=== PATIENT | female | born 1960 | race Caucasian/White ===

== ENCOUNTER 2023-04-30 07:35 | Outpatient (CLI) | payer BC, SELFPAY | END 2023-04-30 07:36 | disposition home or self-care (01) | LOC: NFLDREF 11:45 | PROVIDERS: PCP Nurse Practitioner Family; Referring Provider Nurse Practitioner Family; Visit Provider Nurse Practitioner Family | DX: R53.83 Other fatigue (principal); R20.2 Paresthesia of skin; I10 Essential (primary) hypertension; Z51.81 Encounter for therapeutic drug level monitoring; Z13.6 Encounter for screening for cardiovascular disorders | CPT/HCPCS: 80053; 80061; 82607 ==

== ENCOUNTER 2023-12-26 09:30 | Outpatient (RCR) | payer OTHER, SELFPAY | END 2024-03-11 10:25 | disposition home or self-care (01) | PROVIDERS: PCP Physician Assistant; Visit Provider Nurse Practitioner Family | DX: M70.71 Other bursitis of hip, right hip (principal); M70.72 Other bursitis of hip, left hip; S76.312A Strain of muscle, fascia and tendon of the posterior muscle group at thigh level, left thigh, initial encounter; S76.311A Strain of muscle, fascia and tendon of the posterior muscle group at thigh level, right thigh, initial encounter; M62.81 Muscle weakness (generalized); Z51.89 Encounter for other specified aftercare | CPT/HCPCS: 97110; 97161 ==

== ENCOUNTER 2024-04-25 08:25 | Outpatient (CLI) | payer OTHER, SELFPAY | END 2024-04-25 08:26 | disposition home or self-care (01) | PROVIDERS: PCP Nurse Practitioner Family; Visit Provider Nurse Practitioner Family | DX: Z00.00 Encounter for general adult medical examination without abnormal findings (principal); R73.09 Other abnormal glucose; I10 Essential (primary) hypertension; Z13.0 Encounter for screening for diseases of the blood and blood-forming organs and certain disorders involving the immune mechanism; Z13.6 Encounter for screening for cardiovascular disorders | CPT/HCPCS: 80053; 80061; 83036; 85025 ==

== ENCOUNTER 2024-07-14 09:50 | Outpatient (CLI) | payer MEDICARE, SELFPAY ==
--- NOTE | 2024-07-14 10:05 | CRLHL7_ITS ---
For Patients: As a result of the Cures Act, medical imaging exams and procedure reports are released immediately into your electronic medical record. You may view this report before your referring provider. If you have questions, please contact your health care provider. BILATERAL SCREENING MAMMOGRAM WITH COMPUTER-AIDED DETECTION AND TOMOSYNTHESIS TECHNIQUE: CC and MLO views were obtained. These mammographic images have been obtained using full-field digital technique. These mammographic images were interpreted with the benefit of computer-aided detection. Breast Tomosynthesis was used in this interpretation. COMPARISON FILM: 04/09/23, 01/24/22, 01/14/21. FINDINGS: There are scattered areas of fibroglandular density. IMPRESSION: There is no radiographic evidence for malignancy. ASSESSMENT: BI-RADS Category 2: Benign RECOMMENDATION: Routine screening mammogram in 1 year. A lay language report of this examination will be provided to the patient. Sae Ruff M.D. Diagnostic Radiologist [email or web address] SP/Dictated by: Sae Ruff MD @ 07/17/2024 9:58:00 AM SP/Dictated by: Sae Ruff MD @ 07/17/2024 9:58:00 AM (Electronically Signed)
== END 2024-07-14 09:51 | disposition home or self-care (01) ==
LOC: MAMMO 09:53
PROVIDERS: PCP Nurse Practitioner Family; Visit Provider Nurse Practitioner Family
DX: Z12.31 Encounter for screening mammogram for malignant neoplasm of breast (principal)
CPT/HCPCS: 77063; 77067

== ENCOUNTER 2024-12-29 06:25 | Outpatient (CLI) | payer MEDICARE, SELFPAY ==
--- NOTE | 2024-12-29 07:53 | P.ANES_ITS ---
Anesthesia Charges Start Date/Time Anesthesia Start Date: 12/29/24 Anesthesia Start Time: 07:20 Stop Date/Time Anesthesia Stop Date: 12/29/24 Anesthesia Stop Time: 07:50 Coding CPT Codes CPT Codes: CHRISTOPHER LWLuis INTST NDSC NOS - 02537 ([id number]) P2 - PATIENT W/MILD SYST DISEASE, QX - SPINDLE SANDER SVC W/ MD MED DIRECTION, QK - PIN INSERTER 2-4 CNCRNT ANEIsabela PROC
--- NOTE | 2024-12-29 07:53 | W.ANESCHARGE ---
Anesthesia Charges Start Date/Time Anesthesia Start Date: 12/29/24 Anesthesia Start Time: 07:20 Stop Date/Time Anesthesia Stop Date: 12/29/24 Anesthesia Stop Time: 07:50 Coding CPT Codes CPT Codes: CHRISTOPHER LWLuis INTST NDSC NOS - 21745 ([id number]) P2 - PATIENT W/MILD SYST DISEASE, QX - RESEARCH PROJECT MANAGER SVC W/ MD MED DIRECTION, QK - PRODUCTION PLANNING SUPERVISOR 2-4 CNCRNT ANEIsabela PROC
--- NOTE | 2024-12-29 09:24 | P.ANES_ITS ---
Anesthesia Charges Start Date/Time Anesthesia Start Date: 12/29/24 Anesthesia Start Time: 07:20 Stop Date/Time Anesthesia Stop Date: 12/29/24 Anesthesia Stop Time: 07:50 Coding CPT Codes CPT Codes: CHRISTOPHER LWR INTST NDSC NOS - 13968 ([id number]) P2 - PATIENT W/MILD SYST DISEASE, QK - PASSENGER INTERLINE CLERK 2-4 CNCRNT ANES PROC, QX - TECHNICAL APPLICATIONS SPECIALIST SVC W/ MD MED DIRECTION
--- NOTE | 2024-12-29 09:24 | W.ANESCHARGE ---
Anesthesia Charges Start Date/Time Anesthesia Start Date: 12/29/24 Anesthesia Start Time: 07:20 Stop Date/Time Anesthesia Stop Date: 12/29/24 Anesthesia Stop Time: 07:50 Coding CPT Codes CPT Codes: CHRISTOPHER LWR INTST NDSC NOS - 40055 ([id number]) P2 - PATIENT W/MILD SYST DISEASE, QK - GROCERY SHOPPER 2-4 CNCRNT ANES PROC, QX - CITY CARRIER SVC W/ MD MED DIRECTION
== END 2024-12-29 06:26 | disposition home or self-care (01) ==
LOC: OP CLINIC 06:26
PROVIDERS: PCP Nurse Practitioner Family; Visit Provider Internal Medicine
DX: Z12.11 Encounter for screening for malignant neoplasm of colon (principal); D12.5 Benign neoplasm of sigmoid colon; Z86.0100 Personal history of colon polyps, unspecified
CPT/HCPCS: 00811; 45380; 88305; J2704

== ENCOUNTER 2025-04-21 08:57 | Outpatient (CLI) | payer MEDICARE, SELFPAY ==
[2025-04-23 14:55] LABS: HPV Source Vaginal; HPV, High Risk by TMA Not Detected
== END 2025-04-21 08:58 | disposition home or self-care (01) ==
PROVIDERS: PCP Nurse Practitioner Family; Visit Provider Nurse Practitioner Family
DX: E87.1 Hypo-osmolality and hyponatremia (principal); R73.03 Prediabetes; E66.9 Obesity, unspecified; I10 Essential (primary) hypertension; Z12.4 Encounter for screening for malignant neoplasm of cervix; Z11.51 Encounter for screening for human papillomavirus (HPV); Z13.1 Encounter for screening for diabetes mellitus; Z13.6 Encounter for screening for cardiovascular disorders; Z13.0 Encounter for screening for diseases of the blood and blood-forming organs and certain disorders involving the immune mechanism
CPT/HCPCS: 80053; 80061; 85025; 87624; 87625; 88141; 88142

== ENCOUNTER 2025-05-01 12:49 | Outpatient (CLI) | payer MEDICARE, SELFPAY | END 2025-05-01 12:50 | disposition home or self-care (01) | LOC: RAD 12:50 | PROVIDERS: PCP Nurse Practitioner Family; Visit Provider Nurse Practitioner Family | DX: R01.1 Cardiac murmur, unspecified (principal) | CPT/HCPCS: 93306 ==

== ENCOUNTER 2025-05-07 15:21 | Outpatient (CLI) | payer MEDICARE, SELFPAY ==
--- OUTSIDE RECORDS SUMMARY | 2025-03-26 12:00 | XMS_ITS | Encounter Summary ---
Author Organization [employer] Address [address] [place] [address] Care Team Providers Care Joy Loader Name Role Phone Yolis Wasserman APRN, DIRECTOR OF DEVELOPMENT Primary Care Provi lyndsay Unavailable Reason for Visit * Reason Comments Buttocks Pain * Therapies (Routine) - New Request Specialty Diagnoses / Procedures Referred By Krista [email or web address] Referred To Contact Physical Therapy Diagnoses Lumbar radiculopathy Corbin Mae MD [address] [facility] [place] [address] Phone: tel: fax: Physical Therapy at [facility] Physical [address] [address] Phone: tel: fax: Referral ID Status Reason Start Date Expiration Date V isits Requested Visits Authorized [id number] New Request 02/10/2025 02/10/[phone] Encounter Details Date Type Department Care Team (Late st Contact Info) Description 03/26/2025 12:00 PM CDT Therapy Physical Therapy at [facility] [address] [place], [place] [id number] Maxi Christina, PT [address] [employer] [address] [place] [address] Lumbar radiculopathy (Primary Dx) Social History Tobacco Use Types Packs/Day Years Used Date Smoking Tobacco: Never Smokeless Tobacco: Never Alcohol Use Standard Drinks/Week Comments Yes 0 (1 standard drink = 0.6 oz pure alcohol) Alcoholic Drinks/day: Amount:1-2 drinks; Freq:=< Monthly; Comments No Sex and Gender Information Value Date Recorded Sex Assigned at Not on file Legal Sex Female 4:12 AM CDT Gender Identity Not on file Sexual Orientation Not on file Occupation Industry Job Start Date Job End Date Not on file Not on file Not on file Not on file documented as of this encounter Progress Notes * CarissaamarjitMaxi, PT - 03/26/2025 12:00 PM CDT 03/26/2025 Visit # 5 Protocol: Back and Disc, Sub-Full Start: 12:06 End: 12:45 (FOLDER TIER Visit # 1 Subjective: States she is feeling good today with minimal pain. Every day is different. Cervical Not performed today. Tests performed today (see reviewflowsheet for score and outcomes): None Warm Up: Treadmill: Minutes 7 Intensity mod ICE: back Lumbar 03/26/2025 12:00 PM Lumbar & Torso Set 1 Ext % Max 100% Set 1 Ext ROM 0-42 Set 1 Ext Wgt 58 Set 1 Ext Reps 20 Set 1 Ext Tul 117 Set 1 Ext Shantal RPE 3 Set 2 Ext % Max 100% Set 2 Ext ROM 0-42 Set 2 Ext Wgt 58 Set 2 Ext Reps 20 Set 2 Ext Tul 128 Set 2 Shantal RPE 5 Left Rot % Max 60% Left Rot ROM 35 Left Rot Wgt 20 Left Rot Reps 30 Left Rot Herminio RPE 2 Right Rot % Max 60% Right Rot ROM 35 Right Rot Wgt 20 Right Rot Reps 30 Right Rot Shantal RPE 2 Therapeutic Exercise (29 min): Patient performed isolated lumbar extension exercise and auxillary exercises to increase strength and endurance levels of supporting spinal muscle groups to increase tolerance for sitting and household tasks Tactile and verbal cues to achieve proper body position and alignment prior to exercise. Verbal cues for proper pacing and form during exercise. Verbal cues to perform proper breathing pattern duringexercise. Neuromuscular Re-Education (10 min): Patient performed isolated torso rotation exercise to decrease substitution patterns present with chronic pain, improve muscle recruitment patterns, improve self-correction of posture and improve kinesio awareness, in order to increase tolerance for household tasks. Verbal cues for proper pacing and form during exercise. Verbal cues to perform proper breathing pattern during exercise. Verbal cues to stop exercise when desired fatigue level reached for goal of exercise today. Auxillary 03/26/2025 12:00 PM Auxillary Abs Wgt Set 1 45 Abs Reps Set 1 22 Glute Wgt Set 1 80 Glute Reps Set 1 22 Leg Press Wgt Set 1 190 Leg Press Reps Set 1 21 Lats Wgt Set 1 60 Lats Reps Set 1 20 Therapeutic Activities ( min): Not performed today. Patient Education: HEP options for the future. Pt verbalized full understanding. Assessment: Pt tolerating exercises well without increased Sx, except for some low grade discomfortin buttocks today. Exercises advanced per protocol today as Pt recovering post exercise within expected time frame. Pt expected to continue to progress toward functional goals as further strength gains and spinal stability achieved. Sx fluctuate considerably but still early in POC. Goals: Short Term Goals (4-6 weeks): 1. Pt will sit 20 min with 50% decreased Sx progressing 2. 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 Patient will be independent with home exercise program after discontinued from Physical Therapy. 2. Pt will sit 30 min with minimal to no Sx 3. Pt will be able to climb stairs with minimal to no Sx/difficulty 4. Pt will report CESIA score of 8% or less to demonstrate functional improvement Precautions/Other Information: Follow up with Corbin Mae MD: PRN, Directional Preference: extension, Hx: R bicep tear [id number] L-Ext: #100, Strength Maintenance: may join gym, has some free weights and resistance bands at home, [employer] and [employer] for options, crunches, bridges, squats Certification Period: 02/27/25 - 05/28/25 KX Modifier tracker 04/07 Anticipated Visits until D/C: 11-02 Recommendations/Communication: (see prec/other info) intro to filipino ball ext, L- ext 60%, T-roto 80% Total timed code min: 39 Total treatment time: 39 Maxi Christina PT 03/26/2025, 12:45 PM documented in this encounter Plan of Treatment Upcoming Encounters Date Type Department Care Team (Late st Contact Info) Description 05/11/2025 12:45 PM CDT Appointment Physical Therapy at [facility] Physical Therapy [facility] [address] [place] [address] Maxi Christina, PT [address] [place] [address] 05/15/2025 12:15 PM CDT Appointment Physical Therapy at [facility] [address] [place] [address] Maxi Christina, PT [address] [facility] [address] [place], [place] [address] 05/19/2025 10:45 AM CDT Appointment Physical Therapy at [facility] [address] [address] Maxi Christina, PT [address] [facility] [address] [place] [address] 05/21/2025 12:00 PM CDT Appointment Physical Therapy at [facility] [address] [place] [address] Maxi Christina, PT [address] [place] [address] 05/26/2025 1:00 PM CDT Appointment Physical Therapy at [facility] Physical Therapy [facility] [address] [place] [address] Maxi Christina, PT [address] [place] [address] 06/02/2025 10:00 AM CDT Appointment Physical Therapy at [facility] Physical Therapy [facility] [address] [place] [address] Maxi Christina, PT [address] [place], [place] [address] 06/04/2025 10:30 AM CDT Appointment Physical Therapy at [facility] [address] [place], [place] [address] Maxi Christina, PT [address] [place], [place] [address] documented as of this encounter Visit Diagnoses Diagnosis Lumbar radiculopathy- Primary Thoracic or lumbosacral neuritis or radiculitis, unspecified documented in this encounter Care Teams Joy Loader Relationship Specialty Start Date End Date Yolis Wasserman APRN, DIRECTOR OF DEVELOPMENT PCP - General Nurse Practitioner 12/29/24 documented as of this encounter
--- OUTSIDE RECORDS SUMMARY | 2025-03-30 12:45 | XMS_ITS | Encounter Summary ---
Author Organization [employer] Address [address], [place] [address] Care Team Providers Care Space Operations Name Role Phone Yolis Wasserman APRN, SOUP PERSON Primary Care Provi lyndsay Unavailable Reason for Visit * Reason Comments BACK PAIN, LOW Encounter Details Date Type Department Care Team (Late st Contact Info) Description 03/30/2025 12:45 PM CDT Therapy Physical Therapy at [facility] Physical Therapy [facility] [place] [address] [place] [address] Maxi Christina, PT [address] [place] [address] Lumbar radiculopathy (Primary Dx) Social History Tobacco [...] as of this encounter Progress Notes * Maxi Christina PT - 03/30/2025 12:45 PM CDT 03/30/2025 Visit # 6 Protocol: Back and Disc, Sub-Full Start: 12:50 End: 1:30 (BAKERY TEAM LEADER Visit # 1 Subjective: States the left side still feels like sitting on a nail. Going down steps feeling better but going up still difficult. Symptoms seem to be moving around a little so feel like that is good. Hasn't been getting the numbness symptoms as much in the legs. No soreness after the last visit and was surprised by that. Cervical Not performed today. Tests performed today (see [facility] for score and outcomes): None Warm Up: Treadmill: Minutes 5 Intensity mod ICE: none Lumbar 03/30/2025 12:45 PM Lumbar & Torso Set 1 Ext % Max 60% Set 1 Ext ROM 0-42 Set 1 Ext Wgt 42 Set 1 Ext Reps 25 Set 1 Ext Tul NR Set 1 Ext Shantal RPE 1-2 Left Rot % Max 80% Left Rot ROM 35 Left Rot Wgt 24 Left Rot Reps 30 Left Rot Herminio RPE 3 Right Rot % Max 80% Right Rot ROM 35 Right Rot Wgt 24 Right Rot Reps 30 Right Rot Hsantal RPE 3 Therapeutic Exercise (32 min): Patient performed isolated torso rotation exercise and auxillary exercises to increase strength andendurance levels of supporting spinal muscle groups to increase tolerance for sitting and householdtasks. Tactile and verbal cues to achieve proper body position and alignment prior to exercise. Verbal cues for proper pacing and form during exercise. Verbal cues to perform proper breathing pattern duringexercise. Neuromuscular Re-Education (8 min): Patient performed isolated lumbar extension to decrease substitution patterns present with chronic pain, improve muscle recruitment patterns, improve self- correction of posture and improve kinesio awareness, in order to increase tolerance for stairs . Verbal cues for proper pacing and form during exercise. Verbal cues to stop exercise when desired fatigue level reached for goal of exercise today. Auxillary 03/30/2025 12:45 PM Auxillary Abs Wgt Set 1 50 Abs Reps Set 1 25 Glute Wgt Set 1 85 Glute Reps Set 1 20 Glute Wgt Set 2 85 Glute Reps Set 2 20 Leg Press Wgt Set 1 200 Leg Press Reps Set 1 20 Leg Press Wgt Set 2 200 Leg Press Reps Set 2 20 Lats Wgt Set 1 60 Lats Reps Set 1 20 HEP honduran ball ext Therapeutic Activities ( min): Not performed today. Patient Education: Patient was instructed in pain/time scale to increase their understanding of the benefits related to completing therapy. Assessment: Pt tolerating exercises well without increased Sx today, except for L shoulder bothering her a little after getting up from honduran ball exercise. Pt's performance continues to improve eachweek, with proper post exercise recovery. Pt expected to continue to progress toward functional goals as further strength gains and spinal stability achieved. Lower extremity Sx are starting to centralize. Goals: Short Term Goals (4-6 weeks): 1. Pt will sit 20 min with 50% decreased Sx progressing 2. Pt will be able to climb stairs with 50% decreased Sx/difficulty progressing Intermediate Goals (>6 weeks): 1. Patient will be independent with home exercise program after discontinued from Physical Therapy.Progressing 03/30/25 2. Pt will sit 30 min with [...] free weights and resistance bands at home, will get RC for home and honduran ball for options, crunches, bridges, squats Certification Period: 02/27/25 - 05/28/25 KX Modifier tracker 05/08 Anticipated Visits until D/C: - Recommendations/Communication: (see prec/other info) L-ext 100%, T-roto 60% Total timed code min: 40 Total treatment time: 40 Maxi Christina PT 03/30/2025, 1:31 PM documented in this encounter Plan of Treatment Upcoming Encounters Date Type Department Care Team (Late st Contact Info) Description 05/11/2025 12:45 PM CDT Appointment Physical Therapy at [facility] Physical Therapy [address] [address] Empson, Maxi A, PT [address] [place] [address] 05/15/2025 12:15 PM CDT Appointment Physical Therapy at [facility] Physical Therapy [facility] [address] [place] [address] Maxi Christina, PT [address] [place] [address] 05/19/2025 10:45 AM CDT Appointment Physical Therapy at [facility] Physical Therapy [facility] [address] [place] [address] Maxi Christina, PT [address] [facility] [address] [place] [address] 05/21/2025 12:00 PM CDT Appointment Physical Therapy at [facility] Physical Therapy [facility] [address] [place] [address] Maxi Christina, PT [address] [address] 05/26/2025 1:00 PM CDT Appointment Physical Therapy at [facility] Physical Therapy [facility] [address] [place] [address] Maxi Christina, PT [address] [place] [address] 06/02/2025 10:00 AM CDT Appointment Physical Therapy at [facility] Physical Therapy [facility] [address] [place] [address] Maxi Christina, PT [address] [place] [address] 06/04/2025 10:30 AM CDT Appointment Physical Therapy at [facility] Physical Therapy [facility] [place] [address] [place], [place] [address] Maix Christina, PT [address] [place], [place] [address] documented as of this encounter Visit Diagnoses Diagnosis Lumbar radiculopathy- Primary Thoracic or lumbosacral neuritis or radiculitis, unspecified documented in this encounter Care Teams Space Operations Relationship Specialty Start Date End Date Yolis Wasserman APRN, SOUP PERSON PCP - General Nurse Practitioner 12/29/24 documented as of this encounter
--- OUTSIDE RECORDS SUMMARY | 2025-04-02 11:15 | XMS_ITS | Encounter Summary ---
Author Organization [employer] Address [address], [place] [address] Care Team Providers Care Cullet Crusher And Washer Name Role Phone Yolis Wasserman APRN, ASSISTANT LOAN PROCESSOR Primary Care Provi lyndsay Unavailable Reason for Visit * Reason Comments BACK PAIN, LOW * Therapies (Routine) - New Request Specialty Diagnoses / Procedures Referred By Krista mcclellan Referred To Contact Physical Therapy Diagnoses Lumbar radiculopathy Corbin Mae MD [address] [facility] [place] [address] Phone: tel: fax: Physical Therapy at [facility] Physical [address] [place] [address] Phone: tel: fax: Referral ID Status Reason Start Date Expiration Date V isits Requested Visits Authorized [id number] New Request 02/10/2025 02/10/[phone] Encounter Details Date Type Department Care Team (Late st Contact Info) Description 04/02/2025 11:15 AM CDT Therapy Physical Therapy at [facility] Physical [facility] [address] [place], [place] [phone] Maxi Christina, PT [address] [place], [place] [phone] Lumbar radiculopathy (Primary Dx) Social History Tobacco [...] encounter Progress Notes * CarissaamarjitMaxi, PT - 04/02/2025 11:15 AM CDT 04/02/2025 Visit # 7 Protocol: Back and Disc, Sub-Full Start: 11:18 End: 12:00 (GIANT TIRE 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 The R foot has gotten most of it's feeling back. The left buttock pain still limits moving in bed and going up stairs. Cervical Not performed today. Tests performed today (see reviewfloweet for score and outcomes): None Warm Up: Treadmill: Minutes 5 Intensity mod ICE: none Lumbar 04/02/2025 11:15 AM Lumbar & Torso Set 1 Ext % Max 100% Set 1 Ext ROM 0-42 Set 1 Ext Wgt 64 Set 1 Ext Reps 21 Set 1 Ext Tul NR Set 1 Ext Shantal RPE 3-4 Set 2 Ext % Max 100% Set 2 Ext ROM 0-42 Set 2 Ext Wgt 64 Set 2 Ext Reps 20 Set 2 Ext Tul 108 Set 2 Shantal RPE 3-4 Left Rot % Max 60% Left Rot ROM 35 Left Rot Wgt 20 Left Rot Reps 30 Left Rot Herminio RPE 2-3 Right Rot % Max 60% Right Rot ROM 35 Right Rot Wgt 20 Right Rot Reps 30 Right Rot Shantal RPE 2-3 Therapeutic Exercise (33 min): Patient performed isolated lumbar extension exercise and auxillary exercises to increase strength and endurance levels of supporting spinal muscle groups to increase tolerance for household tasks. Tactile and verbal cues to achieve proper body position and alignment prior to exercise. Verbal cues for proper pacing and form during exercise. Verbal cues to perform proper breathing pattern duringexercise. Neuromuscular Re-Education (9 min): Patient performed isolated torso rotation exercise [...] reached for goal of exercise today. Auxillary 04/02/2025 11:15 AM Auxillary Abs Wgt Set 1 55 Abs Reps Set 1 22 Glute Wgt Set 1 90 Glute Reps Set 1 22 Leg Press Wgt Set 1 205 Leg Press Reps Set 1 22 Lats Wgt Set 1 65 Lats Reps Set 1 20 Lats Wgt Set 2 65 Lats Reps Set 2 20 HEP liberian ball bridges, crunches, wall squats Therapeutic Activities ( min): Not performed today. Patient Education: Home exercise program review. Pt verbalized and demonstrated full understanding. Assessment: Pt tolerating exercises well without increased Sx today, except for tight/uncomfortable sensation on L-ext exercise. For this reason weights were not increased on 2nd set despite low RPE. Pt expected to continue to progress toward functional goals as further strength gains and spinal stability achieved. Good signs of nerve related symptom improvement ongoing still. Goals: Short Term Goals (4-6 weeks): 1. Pt will sit 20 min with 50% decreased Sx progressing 2. 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 Patient will be independent with home exercise program after discontinued from Physical Therapy.Progressing 04/02/25 2. Pt will sit 30 min with minimal to no Sx 3. Pt will be able to climb stairs with minimal to no Sx/difficulty 4. Pt will report CESIA score of 8% or less to demonstrate functional improvement Precautions/Other Information: Follow up with Corbin Mae MD: PRN, Directional Preference: extension, Hx: R bicep tear [id number] (updated 04/02/25) L-Ext: #100, Strength Maintenance: may join gym, has some free weights and resistance bands at home, will get RC for home and [employer] for options, liberian ball crunches, bridges, squats Certification Period: 02/27/25 - 05/28/25 KX Modifier tracker 06/07 Anticipated Visits until D/C: 08-31 Recommendations/Communication: (see prec/other info) liberian ball lumbar ext again and intro to RC, L-ext 60%, T-roto 80% Total timed code min: 42 Total treatment time: 42 Maxi Christina, PT 04/02/2025, 12:00 PM documented in this encounter Plan of Treatment Upcoming Encounters Date Type Department Care Team (Late st Contact Info) Description 05/11/2025 12:45 PM CDT Appointment Physical Therapy at [facility] Physical Therapy [facility] [address] [place] [address] Maxi Christina, PT [address] [place] [address] 05/15/2025 12:15 PM CDT Appointment Physical Therapy at [facility] Physical Therapy [facility] [address] [place] [address] Maxi Christina, PT [address] [place] [address] 05/19/2025 10:45 AM CDT Appointment Physical Therapy at [facility] Physical Therapy [facility] [address] [place] [address] Maxi Christina, PT [address] [place] [address] 05/21/2025 12:00 PM CDT Appointment Physical Therapy at [facility] Physical Therapy [facility] [address] [place] [address] Maxi Christina, PT [address] [place] [address] 05/26/2025 1:00 PM CDT Appointment Physical Therapy at [facility] Physical [facility] [address] [place] [address] Maxi Christina, PT [address] [place] [address] 06/02/2025 10:00 AM CDT Appointment Physical Therapy at [facility] Physical [facility] [address] [place] [address] Maxi Christina, PT [address] [place] [address] 06/04/2025 10:30 AM CDT Appointment Physical Therapy at [facility] Physical [facility] [address] [place] [address] Maxi Christina, PT [address] [place] [address] documented as of this encounter Visit Diagnoses Diagnosis Lumbar radiculopathy- Primary Thoracic or lumbosacral neuritis or radiculitis, unspecified documented in this encounter Care Teams Cullet Crusher And Washer Relationship Specialty Start Date End Date Yolis Wasserman APRN, ASSISTANT LOAN PROCESSOR PCP - General Nurse Practitioner 12/29/24 documented as of this encounter
--- OUTSIDE RECORDS SUMMARY | 2025-04-06 13:00 | XMS_ITS | Encounter Summary ---
Author Organization [employer] Address [address], [place] [address] Care Team Providers Care Satellite Technician Name Role Phone Yolis Wasserman APRN, PLATE FORMER Primary Care Provi lyndsay Unavailable Reason for Visit * Reason Comments BACK PAIN, LOW * Therapies (Routine) - New Request Specialty Diagnoses / Procedures Referred By Krista mcclellan Referred To Contact Physical Therapy Diagnoses Lumbar radiculopathy Corbin Mae MD [address] [facility] [place] [address] Phone: tel: fax: Physical Therapy at [facility] Physical [address] [address] Phone: tel: fax: Referral ID Status Reason Start Date Expiration Date V isits Requested Visits Authorized [id number] New Request 02/10/2025 02/10/[phone] Encounter Details Date Type Department Care Team (Late st Contact Info) Description 04/06/2025 1:00 PM CDT Therapy Physical Therapy at [facility] Physical [facility] [address] [place] [phone] Daisy Castrejon, PT [address] [place], [place] [address] Lumbar radiculopathy (Primary Dx) Social History Tobacco [...] as of this encounter Progress Notes * Daisy Castrejon, PT - 04/06/2025 1:00 PM CDT 04/06/2025 Visit # 8 Protocol: Back and Disc, Sub-Full Start: 12:58 End: 1:40 (PHOSPHORIC ACID SUPERVISOR Visit # 1 Subjective: Pt's still has baseline symptoms that haven't changed. Pt's quadriceps are tighter these days and pt used Cervical Not performed today. Objective Tests & Measures: 5# increase leg press Tests performed today (see reviewflowsheet for score and outcomes): : None Performed Today Warm Up: Movement Specific Training: Not Completed Bike: Minutes 5 Intensity 3mph ICE: na Lumbar 04/06/2025 1:00 PM Lumbar & Torso Set 1 Ext % Max 60 Set 1 Ext ROM 0-42 Set 1 Ext Wgt 42 Set 1 Ext Reps 30 Set 1 Ext Tul - Set 1 Ext Shantal RPE 1 Left Rot % Max 80 Left Rot ROM 35 Left Rot Wgt 28 Left Rot Reps 30 Left Rot Herminio RPE 2 Right Rot % Max 80 Right Rot ROM 35 Right Rot Wgt 28 Right Rot Reps 30 Right Rot Shantal RPE 2 Therapeutic Exercise (32 min): Patient performed isolated torso rotation exercise and auxillary exercises to improve muscle strength to increase tolerance for personal care tasks and household tasks Cues for how to initiate motion w/ T-roto by pushing back w/ ipsilateral shoulder vs pulling forward w/ contralateral shoulder to engage correct muscles Cues for positioning on glut/hams machines to engage correct muscles Neuromuscular Re-Education (10 min): Patient performed isolated lumbar extension to improve coordination and movement quality to increase tolerance for personal care tasks and household tasks. Pt ed that doing more reps as long as not fatiguing is good for controlled movement patterns Auxillary 04/06/2025 1:00 PM Auxillary Abs Wgt Set 1 55 Abs Reps Set 1 30 Glute Wgt Set 1 90 Glute Reps Set 1 30 Leg Press Wgt Set 1 210 Leg Press Reps Set 1 30 Lats Wgt Set 1 65 Lats Reps Set 1 30 Other showed quadricep stretches for home in supine or prone: declined practice HEP reviewed ball HEP on medridge Therapeutic Activities (0 min): Not performed today. Patient Education: Patient was instructed in pain/time scale and correlation of strength and function to increase their understanding of the benefits related to completing the Tria Neck and Back Strengthening program Importance of strength maintenance HEP after d/c Pt demonstrated understanding of Importance of strength maintenance HEP after d/c Assessment: Pt did well during session, demonstrated good effort. Receptive to instruction, feedback, to improve quality of motion w/ T-roto, glut/hams performed. Will benefit from advance in auxiliary weights. Goals: Short Term Goals (4-6 weeks): 1. Pt will sit 20 min with 50% decreased Sx progressing 2. Pt will be able to climb stairs with 50% decreased Sx/difficulty progressing Correction Goals (>6 weeks): 1. Patient will be [...] home, will get RC for home and pitcairn islander ball for options, pitcairn islander ball crunches, bridges, squats Certification Period: 02/27/25 - 05/28/25 KX Modifier tracker 07/08 Anticipated visits to d/c: - Recommendations/Communication: L-ext 100%, 70#, adjust 2nd set as needed T-roto 60% Advance auxiliary weights Total timed code min: 42 Total treatment time: 42 Daisy Castrejon, PT 04/06/2025, 2:32 PM documented in this encounter Plan of Treatment Upcoming Encounters Date Type Department Care Team (Late st Contact Info) Description 05/11/2025 12:45 PM CDT Appointment Physical Therapy at [facility] Physical Therapy [facility] [address] [place] [address] Maxi Christina, PT [address] [place] [address] 05/15/2025 12:15 PM CDT Appointment Physical Therapy at [facility] Physical [facility] [address] [place] [address] Maxi Christina, PT [address] [facility] [address] [place], [place] [address] 05/19/2025 10:45 AM CDT Appointment Physical Therapy at [facility] Physical [facility] [address] [place] [address] Maxi Christina, PT [address] [address] 05/21/2025 12:00 PM CDT Appointment Physical Therapy at [facility] Physical [facility] [address] [place] [address] Maxi Christina, PT [address] [place] [address] 05/26/2025 1:00 PM CDT Appointment Physical Therapy at [facility] Physical Therapy [facility] [address] [place] [address] Maxi Christina, PT [address] [place] [address] 06/02/2025 10:00 AM CDT Appointment Physical Therapy at [facility] Physical Therapy [facility] [address] [place] [address] Maxi Christina, PT [address] [place] [address] 06/04/2025 10:30 AM CDT Appointment Physical Therapy at [facility] Physical [facility] [address] [place] [address] Maxi Christina, PT [address] [place] [address] documented as of this encounter Visit Diagnoses Diagnosis Lumbar radiculopathy- Primary Thoracic or lumbosacral neuritis or radiculitis, unspecified documented in this encounter Care Teams Satellite Technician Relationship Specialty Start Date End Date Yolis Wasserman APRN, PLATE FORMER PCP - General Nurse Practitioner 12/29/24 documented as of this encounter
--- OUTSIDE RECORDS SUMMARY | 2025-04-09 12:00 | XMS_ITS | Encounter Summary ---
Author Organization [employer] Address [address], [place] [address] Care Team Providers Care Single Corner Cutter Name Role Phone Yolis Wasserman APRN, ENVIRONMENTAL ASSISTANT Primary Care Provi lyndsay Unavailable Reason for Visit * Reason Comments BACK PAIN, LOW * Therapies (Routine) - New Request Specialty Diagnoses / Procedures Referred By Krista mcclellan Referred To Contact Physical Therapy Diagnoses Lumbar radiculopathy Corbin Mae MD [address] [facility] [address] Phone: tel: fax: Physical Therapy at [facility] Physical [facility] [address] [place], [place] [address] [place] [address] Phone: tel: fax: Referral ID Status Reason Start Date Expiration Date V isits Requested Visits Authorized [id number] New Request 02/10/2025 02/10/[phone] Encounter Details Date Type Department Care Team (Late st Contact Info) Description 04/09/2025 12:00 PM CDT Therapy Physical Therapy at [facility] Physical [facility] [address] [place], [place] [address] Maxi Christina, PT [address] [place], [place] [phone] Lumbar radiculopathy (Primary Dx) Social History Tobacco [...] as of this encounter Progress Notes * [place] Maxi A, PT - 04/09/2025 12:00 PM CDT 04/09/2025 Visit # 9 Protocol: Back and Disc, Sub-Full Start: 11:58 End: 12:45 (OB NURSE Visit # 1 Subjective: States she is feeling especially stiff today for some reason, but didn't have any increased Sx or soreness after the last session. Pain continuing in L buttock. [place] the work out was veryeasy. Cervical Not performed today. Tests performed today (see reviewflowsheet for score and outcomes): None Warm Up: Treadmill: Minutes 5 Intensity mod ICE: none Lumbar 04/09/2025 12:00 PM Lumbar & Torso Set 1 Ext % Max 100% Set 1 Ext ROM 0-45 Set 1 Ext Wgt 70 Set 1 Ext Reps 25 Set 1 Ext Tul 144 Set 1 Ext Shantal RPE 2 Set 2 Ext % Max 100% Set 2 Ext ROM 0-45 Set 2 Ext Wgt 75 Set 2 Ext Reps 25 Set 2 Ext Tul 156 Set 2 Shantal RPE 4-5 Left Rot % Max 60% Left Rot ROM 35 Left Rot Wgt 22 Left Rot Reps 30 Left Rot Herminio RPE 2 Right Rot % Max 60% Right Rot ROM 35 Right Rot Wgt 22 Right Rot Reps 30 Right Rot Shantal RPE 2 Therapeutic Exercise (37 min): Patient performed isolated lumbar extension exercise and auxillary exercises to increase strength and endurance levels of supporting spinal muscle groups to increase tolerance for stairs. Tactile and verbal cues to achieve proper [...] reached for goal of exercise today. Auxillary 04/09/2025 12:00 PM Auxillary Abs Wgt Set 1 60 Abs Reps Set 1 20 Abs Wgt Set 2 60 Abs Reps Set 2 20 Glute Wgt Set 1 95 Glute Reps Set 1 20 Glute Wgt Set 2 100 Glute Reps Set 2 20 Leg Press Wgt Set 1 220 Leg Press Reps Set 1 20 Leg Press Wgt Set 2 220 Leg Press Reps Set 2 20 Lats Wgt Set 1 70 Lats Reps Set 1 30 Therapeutic Activities ( min): Not performed today. Patient Education: Patient was instructed in pain/time scale to increase their understanding of the benefits related to completing therapy. Assessment: Pt tolerating exercises well without increased Sx today. Pt expected to continue to progress toward functional goals as further strength gains and spinal stability achieved. Pt had her best performance yet with all exercises today despite her subjective report of increased stiffness. Goals: Short Term Goals (4-6 weeks): 1. Pt will sit 20 min with 50% decreased Sx progressing 2. Pt will be able to climb stairs with 50% decreased Sx/difficulty progressing [employer]oulder Goals (>6 weeks): 1. Patient will be [...] home, will get RC for home and [employer] for options, palestinian ball crunches, bridges, squats Certification Period: 02/27/25 - 05/28/25 KX Modifier tracker 08/08 Anticipated visits to d/c: 10-15 Recommendations/Communication: (see prec/other info) Inadvertently did 0-45 ROM on L-ext today, return to 0-42 per protocol, L-ext 60%, T-roto 80% , start isatu chair instruct Total timed code min: 47 Total treatment time: 47 Maxi Christina PT 04/09/2025, 12:47 PM documented in this encounter Plan of Treatment Upcoming Encounters Date Type Department Care Team (Late st Contact Info) Description 05/11/2025 12:45 PM CDT Appointment Physical Therapy at [facility] Physical Therapy [facility] [address] [place] [address] Maxi Christina, PT [address] [place] [id number] 05/15/2025 12:15 PM CDT Appointment Physical Therapy at [facility] Physical Therapy [facility] [address] [place] [address] Maxi Christina, PT [address] [place] [address] 05/19/2025 10:45 AM CDT Appointment Physical Therapy at [facility] Physical Therapy [facility] [address] [place] [address] Maxi Christina, PT [address] [place] [address] 05/21/2025 12:00 PM CDT Appointment Physical Therapy at [facility] Physical Therapy [facility] [address] [place] [address] Maxi Christina, PT [address] [place] [address] 05/26/2025 1:00 PM CDT Appointment Physical Therapy at [facility] Physical Therapy [facility] [address] [place] [address] Maxi Christina, PT [address] [place] [address] 06/02/2025 10:00 AM CDT Appointment Physical Therapy at [facility] Physical [facility] [address] [place] [address] Maxi Christina, PT [address] [place] [address] 06/04/2025 10:30 AM CDT Appointment Physical Therapy at [facility] Physical [facility] [address] [place] [address] Maxi Christina, PT [address] [place] [address] documented as of this encounter Visit Diagnoses Diagnosis Lumbar radiculopathy- Primary Thoracic or lumbosacral neuritis or radiculitis, unspecified documented in this encounter Care Teams Single Corner Cutter Relationship Specialty Start Date End Date Yolis Wasserman APRN, ENVIRONMENTAL ASSISTANT PCP - General Nurse Practitioner 12/29/24 documented as of this encounter
--- OUTSIDE RECORDS SUMMARY | 2025-04-14 12:15 | XMS_ITS | Encounter Summary ---
Author Organization [employer] Address [address], [place] [address] Care Team Providers Care Duck Bill Operator Name Role Phone Yolis Wasserman APRN, DISTRIBUTOR CLEANER Primary Care Provi lyndsay Unavailable Reason for Visit * Reason Comments Buttocks Pain * Therapies (Routine) - New Request Specialty Diagnoses / Procedures Referred By Krista mcclellan Referred To Contact Physical Therapy Diagnoses Lumbar radiculopathy Corbin Mae MD [address] [place] [address] Phone: tel: fax: Physical Therapy at [facility] Physical [address] [address] Phone: tel: fax: Referral ID Status Reason Start Date Expiration Date V isits Requested Visits Authorized [id number] New Request 02/10/2025 02/10/[phone] Encounter Details Date Type Department Care Team (Late st Contact Info) Description 04/14/2025 12:15 PM CDT Therapy Physical Therapy at [facility] Physical [facility] [address] [place], [place] [address] Maxi Christina, PT [address] [place] [address] Lumbar radiculopathy (Primary Dx) Social [...] of this encounter Progress Notes * Maxi Christina, PT - 04/14/2025 12:15 PM CDT 04/14/2025 Visit # 10 Protocol: Back and Disc, Sub-Full Start: 12:17 End: 1:00 (HYDRAULIC CHAIR ASSEMBLER Visit # 1 Subjective: States still a lot of left buttock pain especially with sitting. The surgeon said he will not operate on the cyst on the spine. R foot sensation has completely returned so is pleased withthat. Cervical Not performed today. Tests performed today (see reviewflowsheet for score and outcomes): None Warm Up: Treadmill: Minutes 5 Intensity mod ICE: mod Lumbar 04/14/2025 12:15 PM Lumbar & Torso Set 1 Ext % Max 60% Set 1 Ext ROM 0-42 Set 1 Ext Wgt 45 Set 1 Ext Reps 31 Set 1 Ext Tul 198 Set 1 Ext Shantal RPE 1-2 Left Rot % Max 80% Left Rot ROM 35 Left Rot Wgt 32 Left Rot Reps 30 Left Rot Herminio RPE 4 Right Rot % Max 80% Right Rot ROM 35 Right Rot Wgt 32 Right Rot Reps 30 Right Rot Shantal RPE 4 Therapeutic Exercise (35 min): Patient performed isolated torso rotation exercise and auxillary exercises to increase strength andendurance levels of supporting spinal muscle groups to increase tolerance for sitting Tactile and verbal cues to achieve proper [...] awareness, in order to increase tolerance for sitting. Verbal cues for proper pacing and form during exercise. Verbal cues to stop exercise when desired fatigue level reached for goal of exercise today. Auxillary 04/14/2025 12:15 PM Auxillary Abs Wgt Set 1 60 Abs Reps Set 1 25 Abs Wgt Set 2 60 Abs Reps Set 2 20 Glute Wgt Set 1 105 Glute Reps Set 1 25 Leg Press Wgt Set 1 225 Leg Press Reps Set 1 20 Lats Wgt Set 1 75 Lats Reps Set 1 20 HEP RC x3 (ext, rot, SB) Therapeutic Activities ( min): Not performed today. Patient Education: Home exercise program review. Pt verbalized and demonstrated full understanding. Assessment: Pt tolerating exercises well without increased Sx today. Pt's performance continues to improve each week, with proper post exercise recovery. Pt expected to continue to progress toward functional goals as further strength gains and spinal stability achieved. Patient continues to progress toward LTG#1 as they demonstarted good pacing and control of exercise, but will require further review of others to become independent. Goals: Short Term Goals (4-6 weeks): 1. Pt will sit 20 min with 50% decreased Sx progressing 2. Pt will be able to climb stairs with 50% decreased Sx/difficulty progressing Jail Goals (>6 weeks): 1. Patient will be independent with home exercise program after discontinued from Physical Therapy.Progressing 04/14/25 2. Pt will sit 30 min with minimal to no Sx 3. Pt will be able to climb stairs with minimal to no Sx/difficulty 4. Pt will report CESIA score of 8% or less to demonstrate functional improvement Precautions/Other Information: Follow up with Corbin Mae MD: PRN, Directional Preference: extension, Hx: R bicep tear [id number] (updated 04/14/25) L-Ext: #100, Strength Maintenance: may join gym, has some free weights and resistance bands at home, will get RC for home (x3) and canadian ball (ext) for option, canadian ball crunches, bridges, squats Certification Period: 02/27/25 - 05/28/25 KX Modifier tracker 09/07 Anticipated visits to d/c: 9-14 Recommendations/Communication: (see prec/other info) L-ext 100%, T-roto 60% Total timed code min: 43 Total treatment time: 43 Maxi Christina, PT 04/14/2025, 1:00 PM documented in this encounter Plan of Treatment Upcoming Encounters Date Type Department Care Team (Late st Contact Info) Description 05/11/2025 12:45 PM CDT Appointment Physical Therapy at [facility] Physical Therapy [facility] [address] [place] [address] Maxi Christina, PT [address] [place] [address] 05/15/2025 12:15 PM CDT Appointment Physical Therapy at [facility] Physical [facility] [address] [place] [address] Maxi Christina, PT [address] [place] [address] 05/19/2025 10:45 AM CDT Appointment Physical Therapy at [facility] Physical [facility] [address] [place] [address] Maxi Christina, PT [address] [place] [address] 05/21/2025 12:00 PM CDT Appointment Physical Therapy at [facility] Physical [facility] [address] [place] [address] Maxi Christina, PT [address] [place] [address] 05/26/2025 1:00 PM CDT Appointment Physical Therapy at [facility] Physical [facility] [address] [place] [address] Maxi Christina, PT [address] [place] [address] 06/02/2025 10:00 AM CDT Appointment Physical Therapy at [facility] Physical Therapy [facility] [address] [place] [address] Maxi Christina, PT [address] [place] [address] 06/04/2025 10:30 AM CDT Appointment Physical Therapy at [facility] Physical Therapy [facility] [address] [place] [address] Maxi Christina, PT [address] [place], [place] [address] documented as of this encounter Visit Diagnoses Diagnosis Lumbar radiculopathy- Primary Thoracic or lumbosacral neuritis or radiculitis, unspecified documented in this encounter Care Teams Duck Bill Operator Relationship Specialty Start Date End Date Yolis Wasserman APRN, DISTRIBUTOR CLEANER PCP - General Nurse Practitioner 12/29/24 documented as of this encounter
--- OUTSIDE RECORDS SUMMARY | 2025-04-16 12:00 | XMS_ITS | Encounter Summary ---
Author Organization [employer] Address [address], [place] [address] Care Team Providers Care Green Chain Operator Name Role Phone Yolis Wasserman APRN, CHIEF WARDEN Primary Care Provi lyndsay Unavailable Reason for Visit * Reason Comments BACK PAIN, LOW * Therapies (Routine) - New Request Specialty Diagnoses / Procedures Referred By Krista mcclellan Referred To Contact Physical Therapy Diagnoses Lumbar radiculopathy Corbin Mae MD [address] [facility] [place] [address] Phone: tel: fax: Physical Therapy at [facility] Physical [facility] [address] [place], [place] [address] [address] Phone: tel: fax: Referral ID Status Reason Start Date Expiration Date V isits Requested Visits Authorized [id number] New Request 02/10/2025 02/10/[phone] Encounter Details Date Type Department Care Team (Late st Contact Info) Description 04/16/2025 12:00 PM CDT Therapy Physical Therapy at [facility] Physical [facility] [address] [place], [place] [address] Maxi Christina, PT [address] [place], [place] [id number] Lumbar radiculopathy (Primary Dx) Social History Tobacco [...] Progress Notes * Maxi Christina, PT - 04/16/2025 12:00 PM CDT 04/16/2025 Visit # 11 Protocol: Back and Disc, Sub-Full Start: 12:01 End: 12:45 (BUSINESS CASE ANALYST Visit # 1 Subjective: States today the whole left leg has been tingling. The numbness comes and goes but today has some in the bottoms of both feet. Cervical Not performed today. Tests performed today (see [facility] for score and outcomes): None Warm Up: Treadmill: Minutes 5 Intensity mod ICE: none Lumbar 04/16/2025 12:00 PM Lumbar & Torso Set 1 Ext % Max 100% Set 1 Ext ROM 3-42 Set 1 Ext Wgt 83 Set 1 Ext Reps 25 Set 1 Ext Tul 149 Set 1 Ext Shantal RPE 5-6 Set 2 Ext % Max 100% Set 2 Ext ROM 3-42 Set 2 Ext Wgt 83 Set 2 Ext Reps 22 Set 2 Ext Tul 143 Set 2 Shantal RPE 5-6 Left Rot % Max 60% Left Rot ROM 35 Left Rot Wgt 24 Left Rot Reps 30 Left Rot Herminio RPE 3 Right Rot % Max 60% Right Rot ROM 35 Right Rot Wgt 24 Right Rot Reps 30 Right Rot Shantal RPE 3 Therapeutic Exercise (35 min): Patient performed isolated lumbar extension exercise [...] awareness, in order to increase tolerance for sitting and household tasks. Verbal cues for proper pacing and form during exercise. Verbal cues to perform proper breathing pattern during exercise. Verbal cues to stop exercise when desired fatigue level reached for goal of exercise today. Auxillary 04/16/2025 12:00 PM Auxillary Abs Wgt Set 1 60 Abs Reps Set 1 25 Abs Wgt Set 2 60 Abs Reps Set 2 20 Glute Wgt Set 1 110 Glute Reps Set 1 25 Glute Wgt Set 2 110 Glute Reps Set 2 15 Leg Press Wgt Set 1 230 Leg Press Reps Set 1 20 Leg Press Wgt Set 2 230 Leg Press Reps Set 2 20 Lats Wgt Set 1 75 Lats Reps Set 1 20 Therapeutic Activities ( min): Patient Education: To restrict range of motion on all home exercise program exercises until pain free or discontinue as needed if unable to find pain free position. Pt verbalized full understanding. Assessment: Pt tolerating exercises well without increased Sx today. Trying further restricted ROM on L-ext to see if has any positive affect on Sx over the next couple weeks. Pt expected to continueto progress toward functional goals as further strength gains and spinal stability achieved. Nerve Sx continue to fluctuate. Goals: Short Term Goals (4-6 weeks): 1. Pt will sit 20 min with 50% decreased Sx progressing 2. Pt will be able to climb stairs with 50% decreased Sx/difficulty progressing Adjunct Latin Professor Goals (>6 weeks): 1. Patient will be [...] will get RC for home (x3) and pakistani ball (ext) for option, pakistani ball crunches, catal[place], squats Certification Period: 02/27/25 - 05/28/25 KX Modifier tracker 10/08 Anticipated visits to d/c: 9- Recommendations/Communication: (see prec/other info) pakistani ball shannon, catalina, squats review, L-ext 60%, T-roto 80% Total timed code min: 44 Total treatment time: 44 Maxi Christina PT 04/16/2025, 12:46 PM documented in this encounter Plan of Treatment Upcoming Encounters Date Type Department Care Team (Late st Contact Info) Description 05/11/2025 12:45 PM CDT Appointment Physical Therapy at [facility] Physical Therapy [facility] [address] [place] [address] Maxi Christina, PT [address] [place] [address] 05/15/2025 12:15 PM CDT Appointment Physical Therapy at [facility] Physical Therapy [facility] [address] [place] [address] Maxi Christina, PT [address] [place] [address] 05/19/2025 10:45 AM CDT Appointment Physical Therapy at [facility] Physical Therapy [facility] [address] [place] [address] Maxi Christina, PT [address] [place] [address] 05/21/2025 12:00 PM CDT Appointment Physical Therapy at [facility] Physical Therapy [facility] [address] [place] [address] Maxi Christina, PT [address] [place] [address] 05/26/2025 1:00 PM CDT Appointment Physical Therapy at [facility] Physical Therapy [facility] [address] [place] [address] Maxi Christina, PT [address] [place] [address] 06/02/2025 10:00 AM CDT Appointment Physical Therapy at [facility] Physical [facility] [address] [place] [address] Maxi Christina, PT [address] [place] [address] 06/04/2025 10:30 AM CDT Appointment Physical Therapy at [facility] Physical [facility] [address] [place] [address] Maxi Christina, PT [address] [facility] [address] [place] [address] documented as of this encounter Visit Diagnoses Diagnosis Lumbar radiculopathy- Primary Thoracic or lumbosacral neuritis or radiculitis, unspecified documented in this encounter Care Teams Green Chain Operator Relationship Specialty Start Date End Date Yolis Wasserman APRN, CHIEF WARDEN PCP - General Nurse Practitioner 12/29/24 documented as of this encounter
--- OUTSIDE RECORDS SUMMARY | 2025-04-20 12:45 | XMS_ITS | Encounter Summary ---
Author Organization [employer] Address [address] [address] Care Team Providers Care Board Mixer Tender Name Role Phone Yolis Wasserman APRN, ALCOHOLIC COUNSELOR Primary Care Provi lyndsay Unavailable Reason for Visit * Reason Comments BACK PAIN, LOW PARESTHESIAS * Therapies (Routine) - New Request Specialty Diagnoses / Procedures Referred By Contac t Referred To Contact Physical Therapy Diagnoses Lumbar radiculopathy Corbin Mae MD [address] [facility] [place] [address] Phone: tel: fax: Physical Therapy at [facility] Physical [facility] [address] [place] [address] Phone: tel: fax: Referral ID Status Reason Start Date Expiration Date V isits Requested Visits Authorized [id number] New Request 02/10/2025 02/10/[phone] Encounter Details Date Type Department Care Team (Late st Contact Info) Description 04/20/2025 12:45 PM CDT Therapy Physical Therapy at [facility] Physical [facility] [address] [place], [place] [phone] Maxi Christina, PT [address] [place] [address] Lumbar radiculopathy (Primary Dx) Social [...] Progress Notes * Maxi Christina, PT - 04/20/2025 12:45 PM CDT 04/20/2025 Visit # 12 Protocol: Back and Disc, Sub-Full Start: 12:47 End: 1:30 (RETURNER Visit # 1 Subjective: States she has nerve pain all over during the weekend. Feeling more loose this morning.The kobra stretch seems to help the most. Did the ball exercises already today. Ready for exercise today. Cervical Not performed today. Tests performed today (see reviewfloweet for score and outcomes): None Warm Up: Treadmill: Minutes 5 Intensity mod ICE: none Lumbar 04/20/2025 12:45 PM Lumbar & Torso Set 1 Ext % Max 60% Set 1 Ext ROM 0-42 Set 1 Ext Wgt 50 Set 1 Ext Reps 30 Set 1 Ext Tul NR Set 1 Ext Shantal RPE 2 Left Rot % Max 80% Left Rot ROM 35 Left Rot Wgt 34 Left Rot Reps 30 Left Rot Herminio RPE 1-2 Right Rot % Max 80% Right Rot ROM 35 Right Rot Wgt 34 Right Rot Reps 30 Right Rot Shantal RPE 1-2 Therapeutic Exercise (34 min): Patient performed isolated torso rotation exercise and auxillary exercises to increase strength andendurance levels of supporting spinal muscle groups to increase tolerance for sitting and householdtasks Tactile and verbal cues to achieve proper body position and alignment prior to exercise. Verbal cues for proper pacing and form during exercise. Verbal cues to perform proper breathing pattern duringexercise. Neuromuscular Re-Education (9 min): Patient performed isolated lumbar extension to decrease substitution patterns present with chronic pain, improve muscle recruitment patterns, improve self- correction of posture and improve kinesio awareness, in order to increase tolerance for stairs . Verbal cues for proper pacing and form during exercise. Verbal cues to stop exercise when desired fatigue level reached for goal of exercise today. Auxillary 04/20/2025 12:45 PM Auxillary Abs Wgt Set 1 60 Abs Reps Set 1 25 Abs Wgt Set 2 60 Abs Reps Set 2 25 Glute Wgt Set 1 110 Glute Reps Set 1 20 Glute Wgt Set 2 110 Glute Reps Set 2 20 Leg Press Wgt Set 1 235 Leg Press Reps Set 1 20 Leg Press Reps Set 2 1 set Lats Wgt Set 1 75 Lats Reps Set 1 20 Lats Wgt Set 2 75 Lats Reps Set 2 15 HEP taiwanese ball squats, bridges, crunches Therapeutic Activities ( min): Not performed today. Patient Education: Discontinuing strengthening exercise outside of therapy to improve Sx as she needs sufficient rest in between. Rest just as important as the exercise. Pt verbalized full understanding. Assessment: Pt tolerating exercises well without increased Sx today, except for buttock pain on legpress. This kept to single set today. Returned to full extension ROM with lumbar exercise per subjective report and confirmed directional preference. Pt expected to continue to progress toward functional goals as further strength gains and spinal stability achieved. Pt now independent with HEP ballexercises. Goals: Short Term Goals (4-6 weeks): 1. Pt will sit 20 min with 50% decreased Sx progressing 2. Pt will be able to climb stairs with 50% decreased Sx/difficulty progressing Warp Placer Goals (>6 weeks): 1. Patient will be [...] will get RC for home (x3) and taiwanese ball (ext) for option, taiwanese ball crunches, bridges, squats Certification Period: 02/27/25 - 05/28/25 KX Modifier tracker 11/07 Anticipated visits to d/c: 8- Recommendations/Communication: (see prec/other info) try quad ext and hams in place of leg press, L-ext 100%, T-roto 60% Total timed code min: 43 Total treatment time: 43 Maxi Christina PT 04/20/2025, 1:32 PM documented in this encounter Plan of Treatment Upcoming Encounters Date Type Department Care Team (Late st Contact Info) Description 05/11/2025 12:45 PM CDT Appointment Physical Therapy at [facility] Physical Therapy [facility] [address] [place] [address] Maxi Christina PT [address] [place] [address] 05/15/2025 12:15 PM CDT Appointment Physical Therapy at [facility] Physical Therapy [facility] [address] [place] [address] Maxi Christina, PT [address] [place] [address] 05/19/2025 10:45 AM CDT Appointment Physical Therapy at [facility] Physical Therapy [facility] [address] [place] [address] Maxi Christina, PT [address] [place] [address] 05/21/2025 12:00 PM CDT Appointment Physical Therapy at [facility] Physical Therapy [facility] [address] [place] [address] Maxi Christina, PT [address] [place] [address] 05/26/2025 1:00 PM CDT Appointment Physical Therapy at [facility] Physical Therapy [facility] [address] [place] [address] Maxi Christina, PT [address] [place] [address] 06/02/2025 10:00 AM CDT Appointment Physical Therapy at [facility] Physical Therapy [facility] [address] [place] [address] Maxi Christina, PT [address] [place] [address] 06/04/2025 10:30 AM CDT Appointment Physical Therapy at [facility] Physical [facility] [address] [place] [address] Maxi Christina, PT [address] [place] [address] documented as of this encounter Visit Diagnoses Diagnosis Lumbar radiculopathy- Primary Thoracic or lumbosacral neuritis or radiculitis, unspecified documented in this encounter Care Teams Board Mixer Tender Relationship Specialty Start Date End Date Yolis Wasserman APRN, ALCOHOLIC COUNSELOR PCP - General Nurse Practitioner 12/29/24 documented as of this encounter
--- OUTSIDE RECORDS SUMMARY | 2025-04-23 12:00 | XMS_ITS | Encounter Summary ---
Author Organization [employer] Address [address] [address] Care Team Providers Care Plant Technician Name Role Phone Yolis Wasserman APRN, ACOUSTICAL TILE CARPENTERS SUPERVISOR Primary Care Provi lyndsay Unavailable Reason for Visit * Reason Comments BACK PAIN, LOW * Therapies (Routine) - New Request Specialty Diagnoses / Procedures Referred By Krista mcclellan Referred To Contact Physical Therapy Diagnoses Lumbar radiculopathy Corbin Mae MD [address] [place] [address] Phone: tel: fax: Physical Therapy at [facility] Physical [address] [address] Phone: tel: fax: Referral ID Status Reason Start Date Expiration Date V isits Requested Visits Authorized [id number] New Request 02/10/2025 02/10/[phone] Encounter Details Date Type Department Care Team (Late st Contact Info) Description 04/23/2025 12:00 PM CDT Therapy Physical Therapy at [facility] Physical [facility] [address] [place] [address] [phone] Daisy Castrejon, PT [address] [place], [place] [address] Lumbar radiculopathy (Primary Dx) Social History Tobacco [...] Progress Notes * Daisy Castrejon, PT - 04/23/2025 12:00 PM CDT 04/23/2025 Visit # 13 Protocol: Back and Disc, Sub-Full Start: 12:00 End: 12:45 (ELECTRICAL MANUFACTURING ENGINEER Visit # 1 Subjective: Pt feeling stiff today but overall good. Pt w/o deficit w/ leg press; sometimes left knee bone spurcatches but fine today. Cervical Not performed today. Objective Tests & Measures: 5.6% increase L-ext 2nd set due to reps, RPE 1st set 5# increase abs 10# increase glut/hams Tests performed today (see reviewflowsheet for score and outcomes): : None Performed Today Warm Up: Movement Specific Training: Not Completed Treadmill: Minutes 5 Intensity 3mph ICE: low back Lumbar 04/23/2025 12:00 PM Lumbar & Torso Set 1 Ext % Max 100 Set 1 Ext ROM 0-42 Set 1 Ext Wgt 91 Set 1 Ext Reps 30 Set 1 Ext Tul - Set 1 Ext Shantal RPE 4-5 Set 2 Ext % Max 100 Set 2 Ext ROM 0-42 Set 2 Ext Wgt 96 Set 2 Ext Reps 30 Set 2 Ext Tul - Set 2 Shantal RPE 6-7 Left Rot % Max 60 Left Rot ROM 35 Left Rot Wgt 28 Left Rot Reps 25 Left Rot Herminio RPE 3 Right Rot % Max 60 Right Rot ROM 35 Right Rot Wgt 28 Right Rot Reps 25 Right Rot Shantal RPE 3 Therapeutic Exercise (35 min): Patient performed isolated lumbar extension exercise and auxillary exercises to improve muscle strength to increase tolerance for personal care tasks and household tasks Cues for consistent, even pace w/ challenging weights w/L-ext to engage muscles, suppport spine through full ROM Neuromuscular Re-Education (10 min): Patient performed isolated torso rotation decrease substitution patterns and normalize movement patterns to increase tolerance for personal care tasks and household tasks. Pt ed that doing more reps as long as not fatiguing is good for controlled movement patterns Auxillary 04/23/2025 12:00 PM Auxillary Abs Wgt Set 1 65 Abs Reps Set 1 30 Glute Wgt Set 1 120 Glute Reps Set 1 30 Leg Press Wgt Set 1 235 Leg Press Reps Set 1 20 Lats Wgt Set 1 75 Lats Reps Set 1 27 Therapeutic Activities (0 min): Not performed today. Patient Education: Patient was instructed in pain/time scale and correlation of strength and function to increase their understanding of the benefits related to completing the [place] and Back Strengthening program Advancing weight to improve strength/function is component of POC, to be ongoing challenge .sm Assessment: Pt did well during session, demonstrated good effort, no adverse effects w/ L-ext. Receptive to instruction, feedback, to improve quality of motion w/ L-ext performed. Will benefit from rui chair HEP review. Goals: Short Term Goals (4-6 weeks): 1. Pt will sit 20 min with 50% decreased Sx progressing 2. Pt will be able to climb stairs with 50% decreased Sx/difficulty progressing Long-Term Goals (>6 weeks): 1. Patient will be [...] will get RC for home (x3) and mexican ball (ext) for option, mexican ball crunches, bridges, squats Certification Period: 02/27/25 - 05/28/25 KX Modifier tracker Anticipated visits to d/c: 5- Recommendations/Communication: L-ext 60% T-roto 80% Rui chair HEP review Maintain leg press weight Total timed code min: 45 Total treatment time: 45 Daisy Castrejon, PT 04/23/2025, 12:52 PM documented in this encounter Plan of Treatment Upcoming Encounters Date Type Department Care Team (Late st Contact Info) Description 05/11/2025 12:45 PM CDT Appointment Physical Therapy at [facility] Physical Therapy [facility] [address] [place] [address] Maxi Christina, PT [address] [place] [address] 05/15/2025 12:15 PM CDT Appointment Physical Therapy at [facility] Physical [facility] [address] [place] [address] Maxi Christina, PT [address] [place] [address] 05/19/2025 10:45 AM CDT Appointment Physical Therapy at [facility] Physical [facility] [address] [place] [address] Maxi Christina, PT [address] [place] [address] 05/21/2025 12:00 PM CDT Appointment Physical Therapy at [facility] Physical [facility] [address] [place] [address] Maxi Christina, PT [address] [place] [address] 05/26/2025 1:00 PM CDT Appointment Physical Therapy at [facility] Physical [facility] [address] [place] [address] Maxi Christina, PT [address] [place] [address] 06/02/2025 10:00 AM CDT Appointment Physical Therapy at [facility] Physical Therapy [facility] [address] [place] [address] Maxi Christina, PT [address] [place] [address] 06/04/2025 10:30 AM CDT Appointment Physical Therapy at [facility] Physical Therapy [facility] [address] [place], [place] [address] Maxi Christina, PT [address] [place], [place] [address] documented as of this encounter Visit Diagnoses Diagnosis Lumbar radiculopathy- Primary Thoracic or lumbosacral neuritis or radiculitis, unspecified documented in this encounter Care Teams Plant Technician Relationship Specialty Start Date End Date Yolis Wasserman APRN, ACOUSTICAL TILE CARPENTERS SUPERVISOR PCP - General Nurse Practitioner 12/29/24 documented as of this encounter
--- OUTSIDE RECORDS SUMMARY | 2025-04-27 12:45 | XMS_ITS | Encounter Summary ---
Author Organization [employer] Address [address] [address] Care Team Providers Care Ship Liner Name Role Phone Yolis Wasserman APRN, TICKER MAINTAINER Primary Care Provi lyndsay Unavailable Reason for Visit * Reason Comments BACK PAIN, LOW * Therapies (Routine) - New Request Specialty Diagnoses / Procedures Referred By Krista mcclellan Referred To Contact Physical Therapy Diagnoses Lumbar radiculopathy Corbin Mae MD [address] [place] [address] Phone: tel: fax: Physical Therapy at [facility] Physical [facility] [address] [place], [place] [address] [address] Phone: tel: fax: Referral ID Status Reason Start Date Expiration Date V isits Requested Visits Authorized [id number] New Request 02/10/2025 02/10/[phone] Encounter Details Date Type Department Care Team (Late st Contact Info) Description 04/27/2025 12:45 PM CDT Therapy Physical Therapy at [facility] Physical [facility] [address] [place], [place] [address] Maxi Christina, PT [address] [place], [place] [id number] Lumbar radiculopathy (Primary Dx) Social History Tobacco [...] Progress Notes * Maxi Christina, PT - 04/27/2025 12:45 PM CDT 04/27/2025 Visit # 14 Protocol: Back and Disc, Sub-Full Start: 12:49 End: 1:30 (DOOR ASSEMBLER Visit # 1 Subjective: States she can feel both feet today. Not numb now, just kind of a feeling. R shoulder is pissed off today, but wants to do lat pull down still as she doesn't feel this bothers itat all. Cervical Not performed today. Tests performed today (see reviewflowsheet for score and outcomes): None Warm Up: Treadmill: Minutes 5 Intensity mod ICE: none Lumbar 04/27/2025 12:45 PM Lumbar & Torso Set 1 Ext % Max 60% Set 1 Ext ROM 0-42 Set 1 Ext Wgt 58 Set 1 Ext Reps 30 Set 1 Ext Tul 183 Set 1 Ext Shantal RPE 2 Left Rot % Max 80% Left Rot ROM 35 Left Rot Wgt 38 Left Rot Reps 30 Left Rot Herminio RPE 3-4 Right Rot % Max 80% Right Rot ROM 35 Right Rot Wgt 38 Right Rot Reps 30 Right Rot Shantal RPE 3-4 Therapeutic Exercise (33 min): Patient performed isolated torso rotation exercise [...] reached for goal of exercise today. Auxillary 04/27/2025 12:45 PM Auxillary Abs Wgt Set 1 70 Abs Reps Set 1 20 Glute Wgt Set 1 125 Glute Reps Set 1 20 Glute Wgt Set 2 125 Glute Reps Set 2 21 Leg Press Wgt Set 1 235 Leg Press Reps Set 1 20 Leg Press Wgt Set 2 235 Leg Press Reps Set 2 20 Lats Wgt Set 1 75 Lats Reps Set 1 20 HEP RC x3 Therapeutic Activities ( min): Not performed today. Patient Education: Home exercise program review. Pt verbalized and demonstrated full understanding. Assessment: Pt tolerating exercises well without increased Sx today. R shoulder pain even resolved as session progressed. Patient continues to progress toward LTG#1 as they demonstarted good pacing and control of exercise, but will require further review of others to become independent. Pt expectedto continue to progress toward functional goals as further strength gains and spinal stability achieved. Goals: Short Term Goals (4-6 weeks): 1. Pt will sit 20 min with 50% decreased Sx progressing 2. Pt will be able to climb stairs with 50% decreased Sx/difficulty progressing [facility] Goals (>6 weeks): 1. Patient will be independent with home exercise program after discontinued from Physical Therapy.Progressing 04/27/25 2. Pt will sit 30 min with [...] will get RC for home (x3) and filipino ball (ext) for option, filipino ball crunches, bridges, squats Certification Period: 02/27/25 - 05/28/25 KX Modifier tracker Anticipated visits to d/c: 5-9 Recommendations/Communication: (see prec/other info) L-ext 100%, T-roto 60% Total timed code min: 41 Total treatment time: 41 Maxi Christina, PT 04/27/2025, 1:30 PM documented in this encounter Plan of Treatment Upcoming Encounters Date Type Department Care Team (Late st Contact Info) Description 05/11/2025 12:45 PM CDT Appointment Physical Therapy at [facility] Physical Therapy [facility] [address] [place] [address] Maxi Christina, PT [address] [place], [place] [address] 05/15/2025 12:15 PM CDT Appointment Physical Therapy at [facility] Physical [facility] [address] [place] [address] Maxi Christina, PT [address] [place] [address] 05/19/2025 10:45 AM CDT Appointment Physical Therapy at [facility] Physical Therapy [facility] [address] [place] [address] Maxi Christina, PT [address] [place] [address] 05/21/2025 12:00 PM CDT Appointment Physical Therapy at [facility] Physical Therapy [facility] [address] [place] [address] Maxi Christina, PT [address] [place] [address] 05/26/2025 1:00 PM CDT Appointment Physical Therapy at [facility] Physical Therapy [place] [address] [place] [address] Maxi Christina, PT [address] [place] [address] 06/02/2025 10:00 AM CDT Appointment Physical Therapy at [facility] Physical [facility] [address] [place] [address] Maxi Christina, PT [address] [place] [address] 06/04/2025 10:30 AM CDT Appointment Physical Therapy at [facility] Physical [facility] [address] [place] [address] Maxi Christina, PT [address] [facility] [address] [place], [place] [address] documented as of this encounter Visit Diagnoses Diagnosis Lumbar radiculopathy- Primary Thoracic or lumbosacral neuritis or radiculitis, unspecified documented in this encounter Care Teams Ship Liner Relationship Specialty Start Date End Date Yolis Wasserman APRN, TICKER MAINTAINER PCP - General Nurse Practitioner 12/29/24 documented as of this encounter
--- OUTSIDE RECORDS SUMMARY | 2025-04-30 12:00 | XMS_ITS | Encounter Summary ---
Author Organization [employer] Address [address], [place] [address] Care Team Providers Care Rod Hanger Name Role Phone Yolis Wasserman APRN, FLEET MANAGER Primary Care Provi lyndsay Unavailable Reason for Visit * Reason Comments BACK PAIN, LOW * Therapies (Routine) - New Request Specialty Diagnoses / Procedures Referred By Krista mcclellan Referred To Contact Physical Therapy Diagnoses Lumbar radiculopathy Corbin Mae MD [address] [facility] [place] [address] Phone: tel: fax: Physical Therapy at [facility] Physical [facility] [address] [place], [place] [address] [place] [address] Phone: tel: fax: Referral ID Status Reason Start Date Expiration Date V isits Requested Visits Authorized [id number] New Request 02/10/2025 02/10/[phone] Encounter Details Date Type Department Care Team (Late st Contact Info) Description 04/30/2025 12:00 PM CDT Therapy Physical Therapy at [facility] Physical [facility] [address] [place], [place] [address] Maxi Christina, PT [address] [place], [place] [id number] Lumbar radiculopathy (Primary Dx) Social History Tobacco [...] Progress Notes * Maxi Christina, PT - 04/30/2025 12:00 PM CDT 04/30/2025 Visit # 15 Protocol: Back and Disc, Sub-Full Start: 12:03 End: 12:43 (ROPE TWISTING MACHINE OPERATOR Visit # 1 Subjective: States she did her sauna and a 10 min walk just before coming in today so feeling warmed up. Still feeling the buttock pain and hoping for breakthrough toward the end of therapy. Ordered the isatu chair for home use. Cervical Not performed today. Tests performed today (see [facility] for score and outcomes): None Warm Up: Treadmill: Minutes 5 Intensity mod ICE: none Lumbar 04/30/2025 12:00 PM Lumbar & Torso Set 1 Ext % Max 100% Set 1 Ext ROM 0-42 Set 1 Ext Wgt 105 Set 1 Ext Reps 20 Set 1 Ext Tul NR Set 1 Ext Shantal RPE 7-8 Set 2 Ext % Max 100% Set 2 Ext ROM 0-42 Set 2 Ext Wgt 105 Set 2 Ext Reps 20 Set 2 Ext Tul NR Set 2 Shantal RPE 8 Left Rot % Max 60% Left Rot ROM 35 Left Rot Wgt 30 Left Rot Reps 32 Left Rot Herminio RPE 2-3 Right Rot % Max 60% Right Rot ROM 35 Right Rot Wgt 30 Right Rot Reps 32 Right Rot Shantal RPE 2-3 Therapeutic Exercise (31 min): Patient performed isolated lumbar extension exercise [...] reached for goal of exercise today. Auxillary 04/30/2025 12:00 PM Auxillary Abs Wgt Set 1 75 Abs Reps Set 1 20 Abs Wgt Set 2 75 Abs Reps Set 2 20 Glute Wgt Set 1 130 Glute Reps Set 1 20 Glute Wgt Set 2 130 Glute Reps Set 2 20 Leg Press Wgt Set 1 230 Leg Press Reps Set 1 21 Leg Press Wgt Set 2 230 Leg Press Reps Set 2 20 Lats Wgt Set 1 75 Lats Reps Set 1 20 Lats Wgt Set 2 80 Lats Reps Set 2 20 Therapeutic Activities ( min): Not performed today. Patient Education: How much more therapy is indicated at this point until probable discharge, based on patient's current progress. Pt verbalized full understanding. Assessment: Pt tolerating exercises well without increased Sx today. Pt expected to continue to progress toward functional goals as further strength gains and spinal stability achieved. Pt has felt functional improvements but still persistent referred pain through the buttock region. Goals: Short Term Goals (4-6 weeks): 1. Pt will sit 20 min with 50% decreased Sx progressing 2. Pt will be able to climb stairs with 50% decreased Sx/difficulty progressing [facility] Goals (>6 weeks): 1. Patient will be [...] will get RC for home (x3) and new zealander ball (ext) for option, new zealander ball crunches, bridges, squats Certification Period: 02/27/25 - 05/28/25 KX Modifier tracker Anticipated visits to d/c: 4-6 Recommendations/Communication: (see prec/other info) use new zealander ball for crunches, bridges and squats review, L-ext 60%, T-roto 80% Total timed code min: 41 Total treatment time: 41 Maxi Christina PT 04/30/2025, 12:46 PM documented in this encounter Plan of Treatment Upcoming Encounters Date Type Department Care Team (Late st Contact Info) Description 05/11/2025 12:45 PM CDT Appointment Physical Therapy at [facility] Physical Therapy [place] [address] [place] [address] Maxi Christina, PT [address] [place] [address] 05/15/2025 12:15 PM CDT Appointment Physical Therapy at [facility] Physical Therapy [facility] [address] [place] [address] Maxi Christina PT [address] [place] [address] 05/19/2025 10:45 AM CDT Appointment Physical Therapy at [facility] Physical Therapy [facility] [address] [place] [address] Maxi Christina, PT [address] [place] [address] 05/21/2025 12:00 PM CDT Appointment Physical Therapy at [facility] Physical [place] [address] [place] [address] Maxi Christina, PT [address] [place] [address] 05/26/2025 1:00 PM CDT Appointment Physical Therapy at [facility] Physical Therapy [facility] [address] [place] [address] Maxi Christina, PT [address] [place] [address] 06/02/2025 10:00 AM CDT Appointment Physical Therapy at [facility] Physical Therapy [facility] [address] [place] [address] Maxi Christina, PT [address] [facility] [address] [place] [address] 06/04/2025 10:30 AM CDT Appointment Physical Therapy at [facility] Physical [facility] [address] [place] [address] Maxi Christina, PT [address] [facility] [address] [place] [address] documented as of this encounter Visit Diagnoses Diagnosis Lumbar radiculopathy- Primary Thoracic or lumbosacral neuritis or radiculitis, unspecified documented in this encounter Care Teams Rod Hanger Relationship Specialty Start Date End Date Yolis Wasserman, SWEET PICKLE MAKER, FLEET MANAGER PCP - General Nurse Practitioner 12/29/24 documented as of this encounter
--- OUTSIDE RECORDS SUMMARY | 2025-05-04 13:00 | XMS_ITS | Encounter Summary ---
Author Organization [email or web address] Address [address], [place] [address] Care Team Providers Care Batter Mixer Name Role Phone Yolis Wasserman APRN, RN LAB Primary Care Provi lyndsay Unavailable Reason for Visit * Reason Comments BACK PAIN, LOW * Therapies (Routine) - New Request Specialty Diagnoses / Procedures Referred By Krista mcclellan Referred To Contact Physical Therapy Diagnoses Lumbar radiculopathy Corbin Mae MD [address] [place] [address] Phone: tel: fax: Physical Therapy at [facility] Physical [address] [address] Phone: tel: fax: Referral ID Status Reason Start Date Expiration Date V isits Requested Visits Authorized [id number] New Request 02/10/2025 02/10/[phone] Encounter Details Date Type Department Care Team (Late st Contact Info) Description 05/04/2025 1:00 PM CDT Therapy Physical Therapy at [facility] Physical [facility] [address] [place] [address] [phone] Daisy Castrejon, PT [address] [place], [place] [address] Lumbar radiculopathy (Primary Dx) Social History Tobacco [...] of this encounter Progress Notes * Daisy Castrejno, PT - 05/04/2025 1:00 PM CDT 05/04/2025 Visit # 16 Protocol: Back and Disc, Sub-Full Start: 1:03 End: 1:45 (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 Pt ordered isatu chair for her house, should arrive soon. Cervical Not performed today. Objective Tests & Measures: Tests performed today (see reviewflowsheet for score and outcomes): : None Performed Today Warm Up: Movement Specific Training: Not Completed Treadmill: Minutes 5 Intensity 3mph ICE: na Lumbar 05/04/2025 1:00 PM Lumbar & Torso Set 1 Ext % Max 60 Set 1 Ext ROM 0-42 Set 1 Ext Wgt 63 Set 1 Ext Reps 30 Set 1 Ext Tul - Set 1 Ext Shantal RPE 5 Left Rot % Max 80 Left Rot ROM 35 Left Rot Wgt 40 Left Rot Reps 30 Left Rot Herminio RPE 3 Right Rot % Max 80 Right Rot ROM 35 Right Rot Wgt 40 Right Rot Reps 30 Right Rot Shantal RPE 3 Therapeutic Exercise (32 min): Patient performed isolated torso rotation exercise and auxillary exercises to improve muscle strength to increase tolerance for personal care tasks and household tasks Cues for consistent, even pace w/ challenging weights w/T-roto to engage muscles, suppport spine through full ROM Neuromuscular Re-Education (10 min): Patient performed isolated lumbar extension decrease substitution patterns and normalize movement patterns to increase tolerance for personal care tasks and household tasks. Pt ed that doing more reps as long as not fatiguing is good for controlled movement patterns Auxillary 05/04/2025 1:00 PM Auxillary Abs Wgt Set 1 75 Abs Reps Set 1 30 Abs Wgt Set 2 75 Abs Reps Set 2 legs out: 30 Glute Wgt Set 1 130 Glute Reps Set 1 30 Glute Wgt Set 2 130 Glute Reps Set 2 14 Leg Press Wgt Set 1 240 Leg Press Reps Set 1 30 Leg Press Wgt Set 2 240 Leg Press Reps Set 2 20 Lats Wgt Set 1 80 Lats Reps Set 1 30 Lats Wgt Set 2 80 Lats Reps Set 2 15 Therapeutic Activities (0 min): Not performed today. Patient Education: Patient was instructed in pain/time scale and correlation of strength and function to increase their understanding of the benefits related to completing the [place] and Back Strengthening program Advancing weight to improve strength/function is component of POC, to be ongoing challenge Pt demonstrated understanding of POC Assessment: Pt did well during session, demonstrated good effort. Receptive to instruction, feedback, to improve quality of motion w/ T-roto performed. Will benefit from advance in auxiliary weights. Goals: Short Term Goals (4-6 weeks): 1. Pt will sit 20 min with 50% decreased Sx progressing 2. Pt will be able to climb stairs with 50% decreased Sx/difficulty progressing It Administrator Goals (>6 weeks): 1. Patient will be [...] will get RC for home (x3) and portuguese ball (ext) for option, portuguese ball crunches, bridges, squats Certification Period: 02/27/25 - 05/28/25 KX Modifier tracker Anticipated visits to d/c: 2-8 Recommendations/Communication: L-ext 100%, 5% increase T-roto 60% Advance auxiliary weights as able Total timed code min: 42 Total treatment time: 42 Daisy M Rust, PT 05/04/2025, 1:53 PM documented in this encounter Plan of Treatment Upcoming Encounters Date Type Department Care Team (Late st Contact Info) Description 05/11/2025 12:45 PM CDT Appointment Physical Therapy at [facility] Physical Therapy [facility] [address] [place] [address] Maxi Christina, PT [address] [place] [address] 05/15/2025 12:15 PM CDT Appointment Physical Therapy at [facility] Physical Therapy [facility] [address] [place] [address] Maxi Christina, PT [address] [place] [address] 05/19/2025 10:45 AM CDT Appointment Physical Therapy at [facility] Physical Therapy [facility] [address] [place] [address] Maxi Christina, PT [address] [place] [address] 05/21/2025 12:00 PM CDT Appointment Physical Therapy at [facility] Physical Therapy [facility] [address] [place] [address] Maxi Christina, PT [address] [place], [place] [id number] 05/26/2025 1:00 PM CDT Appointment Physical Therapy at [facility] Physical Therapy [facility] [address] [place] [address] Maxi Christina, PT [address] [place] [address] 06/02/2025 10:00 AM CDT Appointment Physical Therapy at [facility] Physical [facility] [address] [place] [address] Maxi Christina, PT [address] [facility] [address] [place] [address] 06/04/2025 10:30 AM CDT Appointment Physical Therapy at [facility] Physical [facility] [address] [place] [address] Maxi Christina, PT [address] [facility] [address] [place] [address] documented as of this encounter Visit Diagnoses Diagnosis Lumbar radiculopathy- Primary Thoracic or lumbosacral neuritis or radiculitis, unspecified documented in this encounter Care Teams Batter Mixer Relationship Specialty Start Date End Date Yolis Wasserman APRN, RN LAB PCP - General Nurse Practitioner 12/29/24 documented as of this encounter
--- OUTSIDE RECORDS SUMMARY | 2025-05-07 13:30 | XMS_ITS | Encounter Summary ---
Author Organization [employer] Address [address], [place] [address] Care Team Providers Care Extrusion Press Supervisor Name Role Phone Yolis Wasserman APRN, CULINARY ARTS TEACHER Primary Care Provi lyndsay Unavailable Reason for Visit * Reason Comments BACK PAIN, LOW * Therapies (Routine) - New Request Specialty Diagnoses / Procedures Referred By Krista mcclellan Referred To Contact Physical Therapy Diagnoses Lumbar radiculopathy Corbin Mae MD [address] [facility] [place] [address] Phone: tel: fax: Physical Therapy at [facility] Physical [facility] [address] [place], [place] [address] [place] [address] Phone: tel: fax: Referral ID Status Reason Start Date Expiration Date V isits Requested Visits Authorized [id number] New Request 02/10/2025 02/10/[phone] Encounter Details Date Type Department Care Team (Late st Contact Info) Description 05/07/2025 1:30 PM CDT Therapy Physical Therapy at [facility] Physical 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 Cervical Not performed today. Tests performed today (see reviewfloweet for score and outcomes): None Warm Up: Treadmill: Minutes 5 Intensity mod ICE: none Lumbar 05/07/2025 1:30 PM Lumbar & Torso Set 1 Ext % Max 100% Set 1 Ext ROM 35 Set 1 Ext Wgt 114 Set 1 Ext Reps 20 Set 1 Ext Tul 97 Set 1 Ext Shantal RPE 6 Set 2 Ext % Max 100% Set 2 Ext ROM 35 Set 2 Ext Wgt 114 Set 2 Ext Reps 20 Set 2 Ext Tul 91 Set 2 Shantal RPE 7 Left Rot % Max 60% Left Rot ROM 35 Left Rot Wgt 34 Left Rot Reps 30 Left Rot Herminio RPE 4 Right Rot % Max 60% Right Rot ROM 35 Right Rot Wgt 34 Right Rot Reps 30 Right Rot Shantal RPE 4 Therapeutic Exercise (29 min): Patient performed isolated lumbar extension exercise and auxillary exercises to increase strength and endurance levels of supporting spinal muscle groups to increase tolerance for sitting. Tactile and verbal cues to achieve proper [...] reached for goal of exercise today. Auxillary 05/07/2025 1:30 PM Auxillary Abs Wgt Set 1 80 Abs Reps Set 1 24 Abs Wgt Set 2 80 Abs Reps Set 2 20 Glute Wgt Set 1 135 Glute Reps Set 1 23 Glute Wgt Set 2 135 Glute Reps Set 2 20 Leg Press Wgt Set 1 240 Leg Press Reps Set 1 22 Leg Press Wgt Set 2 240 Leg Press Reps Set 2 20 Lats Wgt Set 1 85 Lats Reps Set 1 20 Lats Wgt Set 2 85 Lats Reps Set 2 20 Therapeutic Activities ( min): Not performed today. Patient Education: How much more therapy is indicated at this point until probable discharge, based on patient's current progress. Pt verbalized full understanding. Assessment: Pt tolerating exercises well without increased Sx today. Pt expected to continue to progress toward functional goals as further strength gains and spinal stability achieved. Subjective subtle improvements per Pt today. Will likely reach sufficient strength gains for maintenance routine in the next couple weeks. Goals: Short Term Goals (4-6 weeks): 1. Pt will sit 20 min with 50% decreased Sx progressing 2. Pt will be able to climb stairs with 50% decreased Sx/difficulty progressing Head Of Sales Promotion Goals (>6 weeks): 1. Patient will be [...] will get RC for home (x3) and bulgarian ball (ext) for option, bulgarian ball crunches, bridges, squats Certification Period: 02/27/25 - 05/28/25 KX Modifier tracker Anticipated visits to d/c: 4-5 Recommendations/Communication: (see prec/other info) RC x3, L-ext 60% , T-roto 80% Total timed code min: 38 Total treatment time: 38 Maxi Christina PT 05/07/2025, 2:13 PM documented in this encounter Plan of Treatment Upcoming Encounters Date Type Department Care Team (Late st Contact Info) Description 05/11/2025 12:45 PM CDT Appointment Physical Therapy at [facility] Physical Therapy [facility] [place] [address] [place] [address] Maxi Christina, PT [address] [place], [place] [id number] 05/15/2025 12:15 PM CDT Appointment Physical Therapy at [facility] Physical Therapy [facility] [place] [address] [place] [address] Maxi Christina, PT [address] [place] [address] 05/19/2025 10:45 AM CDT Appointment Physical Therapy at [facility] Physical Therapy [facility] [place] [address] [place] [address] Maxi Christina, PT [address] [place] [address] 05/21/2025 12:00 PM CDT Appointment Physical Therapy at [facility] Physical Therapy [facility] [place] [address] [place] [address] Maxi Christina, PT [address] [place] [address] 05/26/2025 1:00 PM CDT Appointment Physical Therapy at [facility] Physical Therapy [facility] [place] [address] [place] [address] Maxi Christina, PT [address] [place] [address] 06/02/2025 10:00 AM CDT Appointment Physical Therapy at [facility] Physical [facility] [address] [place] [address] Maxi Christina, PT [address] [place] [address] 06/04/2025 10:30 AM CDT Appointment Physical Therapy at [facility] Physical [facility] [address] [place] [address] Maxi Christina, PT [address] [place] [address] documented as of this encounter Visit Diagnoses Diagnosis Lumbar radiculopathy- Primary Thoracic or lumbosacral neuritis or radiculitis, unspecified documented in this encounter Care Teams Extrusion Press Supervisor Relationship Specialty Start Date End Date Yolis Wasserman APRN, CULINARY ARTS TEACHER PCP - General Nurse Practitioner 12/29/24 documented as of this encounter
--- NOTE | 2025-05-07 15:30 | CRLHL7_ITS ---
For Patients: As a result of the Century Cures Act, medical imaging exams and procedure reports are released immediately into your electronic medical record. You may view this report before your referring provider. If you have questions, please contact your health care provider. DXA BONE MINERAL DENSITY STUDY Reason for exam: Screening for osteoporosis. Current height (in): 68. Weight (lb): 240. Menopause age: 53. Ethnicity: White. 1. Have you had a previous hip or vertebral fracture? No. 2. Have you had any fractures during your adult life which did not result from significant trauma (e.g., auto accident)? Yes. 3. Did either of your parents have a hip fracture? No. 4. Do you smoke? No. 5. Have you ever taken Glucocorticoids? No. 6. Do you have rheumatoid arthritis? No. 7. Do you have secondary osteoporosis? No. 8. Do you drink 3 or more alcoholic drinks per day? No. 9. Are you being treated for osteoporosis? No. 10. Have you ever taken any of the following medications: Actonel, Evista, Fosamax, Miacalcin, Reclast, Boniva, Forteo, HRT (i.e. estrogen/hormone therapy), Protelos, Prolia, Vitamin D, Calcium, other ??? please specify. ANSWER: Yes, vitamin D and calcium. 11. Do you have any of the following medical conditions: Anorexia or bulimia, asthma or emphysema, end stage renal disease, hyperparathyroidism, any seizure disorders, cancer, inflammatory bowel diseases, hysterectomy, other ??? please specify. ANSWER: No. 12. What was your maximum height (inches)? 70. 13. Do you perform weight bearing exercise regularly? Yes. 14. Do you regularly consume dairy products? Yes. 15. Do you drink caffeinated beverages? No. 16. At what age did your period start? 11. 17. Are you premenopausal? No. 18. How many full-term pregnancies have you had? 2. 19. Have you ever missed your period for more than 6 months in a row (not including or menopause)? No. TECHNIQUE: Bone mineral density study was performed using the Raw[employer]. FINDINGS: The results of the study expressed as bone mineral density (BMD) are as follows: Lumbar spine L1 to L3: BMD: 1.337 g/cm2. T-score: 2.9. Z-score: 4.7. Neck Left: BMD: 0.801 g/cm2. T-score: -0.4. Z-score: 1.1. Right: BMD: 0.806 g/cm2. T-score: -0.4. Z-score: 1.2. Total Left: BMD: 1.040 g/cm2. T-score: 0.8. Z-score: 2.1. Right: BMD: 1.067 g/cm2. T-score: 1.0. Z-score: 2.3. IMPRESSION: Normal bone density. *Comparison exams done prior to 04/2020 were performed on different unit, [place]. Sae Ruff M.D. Diagnostic Radiologist [email or web address] RANDA/дмитрий choe/Dictated by: Sae Ruff MD @ 05/08/2025 9:22:00 AM (Electronically Signed)
--- OUTSIDE RECORDS SUMMARY | 2025-05-08 00:54 | XMS_ITS | Clinical Summary ---
Author Organization [employer] Address [address] [address] Care Team Providers Care Bottom Turner Name Role Phone Yolis Wasserman APRN, CRYPTOLOGIC TECHNICIAN TECHNICAL Primary Care Provi lyndsay Unavailable Source Comments You are receiving this document as you are listed as the primary care provider,follow-up provider, or the patient has been referred to you for consultation.This is in compliance with the Medicare andMedicaid EHR Incentive Program,which states Providers who transition their patient to another setting of careor provider of care or refers their patient to another provider of care shouldprovide summary care record for each transition of care or referral. [facility] Allergies Active Allergy Reactions Criticality Noted Date Comments Latex 05/06/2011 PN: Converted from LW Latex Sensitivity Flag Medications hydroCHLOROthia zide (ORETIC) 25 MG tablet TK 1 T PO QD 3 04/13/2019 Act baldomero verapamil (CALANSR,ISOPTI NSR) 120 MG controlled release tablet TK 1 T PO D WAC 2 04/13/2019 Active losartan (COZAAR) 50 MG tablet TK 2 TS PO QD 2 04/13/2019 Active cyclobenzaprine (FLEXERIL) 5 MG tablet Take 1-2 Tablets (5-10 mg) by mouth three times a day as needed for Muscle Spasms. 30 Tablet 12/30/2024 Active gabapentin (NEURONTIN) 300 MG capsule Take 1 Capsule (300 mg) by mouth three times a day. 90 Capsule 3 01/09/2025 6 Active Active Problems Problem Noted Date Diagnosed Date Lumbar radiculopathy 02/27/2025 Encounters Date Type Department Care Team Description 05/07/2025 1:30 PM CDT Therapy Physical Therapy at [address] [address] Maxi Christina, PT Lumbar radiculopathy (Primary Dx) 05/04/2025 1:00 PM CDT Therapy Physical Therapy at [address] [address] Daisy Castrejon, PT Lumbar radiculopathy (Primary Dx) 04/30/2025 12:00 PM CDT Therapy Physical Therapy at [address] [address] Maxi Christina, PT Lumbar radiculopathy (Primary Dx) 04/27/2025 12:45 PM CDT Therapy Physical Therapy at [address] [address] Maxi Christina, PT Lumbar radiculopathy (Primary Dx) 04/23/2025 12:00 PM CDT Therapy Physical Therapy at [address] [address] Daisy Castrejon, PT Lumbar radiculopathy (Primary Dx) 04/20/2025 12:45 PM CDT Therapy Physical Therapy at [address] [address] Maxi Christina, PT Lumbar radiculopathy (Primary Dx) 04/16/2025 12:00 PM CDT Therapy Physical Therapy at [address] [address] Maxi Christina, PT Lumbar radiculopathy (Primary Dx) 04/14/2025 12:15 PM CDT Therapy [facility] [address] [place] [address] Maxi Christina, PT Lumbar radiculopathy (Primary Dx) 04/09/2025 12:00 PM CDT Therapy Physical Therapy at [place] [address] [place] [address] Maxi Christina, PT Lumbar radiculopathy (Primary Dx) 04/06/2025 1:00 PM CDT Therapy Physical Therapy at [facility] Physical [place] [address] [place] [address] Daisy Castrejon, PT Lumbar radiculopathy (Primary Dx) 04/02/2025 11:15 AM CDT Therapy Physical Therapy at [place] [address] [place] [address] Maxi Christina, PT Lumbar radiculopathy (Primary Dx) 03/30/2025 12:45 PM CDT Therapy Physical Therapy at [place] [address] [place] [address] Maxi Christina, PT Lumbar radiculopathy (Primary Dx) 03/26/2025 12:00 PM CDT Therapy Physical Therapy at [place] [address] [place] [address] Maxi Christina, PT Lumbar radiculopathy (Primary Dx) 03/23/2025 2:30 PM CDT Therapy Physical Therapy at [facility] Physical [place] [address] [place] [address] Adalberto Elliott, [employer] Lumbar radiculopathy (Primary Dx) 03/19/2025 12:00 PM CDT Therapy Physical Therapy at [place] [address] [place] [address] Maxi Christina, PT Lumbar radiculopathy (Primary Dx) 03/16/2025 12:45 PM CDT Therapy Physical Therapy at [facility] Physical Therapy [place] [address] [place] [address] Maxi Christina PT Lumbar radiculopathy (Primary Dx) 02/27/2025 8:30 AM CDT Therapy Physical Therapy at [facility] Physical [place] [address] [place] [address] Maxi Christina PT Lumbar radiculopathy (Primary Dx) 02/10/2025 3:15 PM CDT Phone Visit [facility] [address] [place] [address] Corbin Mae MD Lumbar radiculopathy (Primary Dx) from Last 3 Months Social History Tobacco Use Types Packs/Day Years [...] file Not on file Not on file Last Filed Vital Signs Vital Sign Reading Time Taken Comments Blood Pressure 145/79 01/27/2025 8:32 AM CDT Pulse 68 01/27/2025 8:21 AM CDT Temperature 36.4 C (97.5 F) 01/27/2025 7:40 AM CDT Respiratory Rate 18 01/27/2025 8:32 AM CDT Oxygen Saturation 95% 01/27/2025 8:21 AM CDT Inhaled Oxygen Concentration - - Weight 111.1 kg (245 lb) 01/27/2025 7:40 AM CDT Height 172.7 cm (5' 8) 01/27/2025 7:40 AM CDT Body Mass Index 37.25 01/27/2025 7:40 AM CDT Plan of Treatment Upcoming Encounters Date Type Department Care Team (Late st Contact Info) Description 05/11/2025 12:45 PM CDT Appointment Physical Therapy at [facility] Physical Therapy [facility] [address] [place] [address] Maxi Chritsina, PT [address] [place] [address] 05/15/2025 12:15 PM CDT Appointment Physical Therapy at [facility] Physical Therapy [facility] [address] [place] [address] Maxi Christina, PT [address] [place] [address] 05/19/2025 10:45 AM CDT Appointment Physical Therapy at [facility] Physical [facility] [address] [place] [address] Maxi Christina, PT [address] [place] [address] 05/21/2025 12:00 PM CDT Appointment Physical Therapy at [facility] Physical Therapy [facility] [address] [place] [address] Maxi Christina, PT [address] [place] [address] 05/26/2025 1:00 PM CDT Appointment Physical Therapy at [facility] Physical Therapy [facility] [address] [place] [address] Maxi Christina, PT [address] [place] [address] 06/02/2025 10:00 AM CDT Appointment Physical Therapy at [facility] Physical [facility] [address] [place] [address] Maxi Christina, PT [address] [place] [address] 06/04/2025 10:30 AM CDT Appointment Physical Therapy at [facility] [address] [place] [address] Maxi Christina, PT [address] [place] [address] Health Maintenance Due Date Last Done Comments Colon Cancer Screening Plan Due 1959 Diabetes Screening- (based on age and BMI) 1959 Hep C Screening (Preventive Services) 1960 Medicare Welcome Visit 1960 Pneumococcal Vaccine 50+ Yrs (1 of 1 - PCV) 2009 Cervical Cancer Screening Due 03/14/2012 03/13/2012, 03/13/2012, 09/19/2010 Mammogram 01/02/2015 01/02/2014, 11/2011 (Completed) Cholesterol 09/19/2015 09/19/2010 Dexa 2024 COVID-19 Vaccine ( season) 2025 10/21/2024, 10/01/2023, 09/22/2022, Additional history exists DTaP/Tdap/Td Vaccine (3 - Tdap) 12/16/2029 12/16/2019, 09/30/2009 RSV Vaccine (1 - 1-dose 75+ series) 2034 Zoster/Shingles Vaccine Completed 09/22/2022, 05/05 Influenza Vaccine Completed 10/21/2024, , 09/22/2022, Additional history exists HepA Vaccine Aged Out No longer eligi ble based on patient's age to complete this topic HepB Vaccine Aged Out No longer eligi ble based on patient's age to complete this topic Hib Vaccine Aged Out No longer eligi ble based on patient's age to complete this topic IPV (Polio) Vaccine Aged Out No longe r eligible based on patient's age to complete this topic MCV4 Vaccine Aged Out No longer eligi ble based on patient's age to complete this topic Meningococcal B Vaccine Aged Out No l onger eligible based on patient's age to complete this topic Procedures Procedure Name Priority Date/Time Associated Diagnosis Comments ANATOMICAL PATH LIQUID BASED Routine 03/13/2012 9:42 AM CDT CHOL, HDL, LDL NON-FASTING Routine 09/19/2010 2:17 PM CDT from Last 3 Months or Most Recently Relevant to Health Maintenance Results * Pap Smear (03/13/2012 9:42 AM CDT) 03/13/2012 9:42 AM CDT Narrative HP CONVERSION - 03/18/2012 2:56 PM CDT Final GYNECOLOGICAL CYTOLOGY REPORT Pathology #: [id number] Date Obtained: 03/13/2012 Date Received: 03/14/2012 INTERPRETATION/RESULTS: Negative for Intraepithelial Lesion or Malignancy SPECIMEN ADEQUACY: Satisfactory for Evaluation. No endocervical cells/transformation zone component present; patient is postmenopausal. Verified on 03/18/2012 by JOS MOSS(ASCP) (electronic signature) CLINICAL NOTES: LMP: Not Stated. LIQUID BASED PAP SMEAR SPECIMEN TYPE: CERVICAL WITH REFLEX TO HPV IF ASCUS PLEASE NOTE: The pap smear is a screening test designed to aid in the detection of cervical cancer and its precursor lesions. It is not a diagnostic procedure and should not be used as the sole means of detecting cervical cancer. Both false-positive and false-negative reports may occur. End of Report Sammie Patrick APRN, CRYPTOLOGIC TECHNICIAN TECHNICAL LAB_1 Final Re sult HP CONVERSION * (ABNORMAL) CHOL, HDL, LDL NON-FASTING (09/19/2010 2:17 PM CDT) Cholesterol 185 0 - 200 mg/dL HP CONVERSION Triglycerides 300(H) 0 - 149 mg/dL HP CONVERSION HDL Cholesterol 42 >39 mg/dL HP CONVERSION LDL Direct 105 0 - 130 mg/dL HP CONVERSION Cholesterol/HDL Ratio Screen 4.4 No normal range HP CONVERSION 09/19/2010 2:17 PM CDT us Sammie Patrick APRN, CRYPTOLOGIC TECHNICIAN TECHNICAL LAB_1 Final Re sult HP CONVERSION from Last 3 Months or Most Recently Relevant to Health Maintenance Insurance [employer] MEDICARE UC[employer] MED[employer]ARE Care Teams Bottom Turner Relationship Specialty Start Date End Date Yolis Wasserman APRN, CRYPTOLOGIC TECHNICIAN TECHNICAL PCP - General Nurse Practitioner 2/10/25
--- OUTSIDE RECORDS SUMMARY | 2025-05-08 00:54 | XMS_ITS | Continuity of Care Document ---
Author Organization [facility] Address [address] [place] [id number] Social History Not on File Plan of Treatment Not on file
--- OUTSIDE RECORDS SUMMARY | 2025-05-08 00:54 | XMS_ITS | Clinical Summary ---
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 0 8 Active losartan (COZAAR) 50 mg tabletIndicatio ns:HTN (hypertension) Take 2 Tablets (100 mg) by mouth once daily. Please call I for annual cardiology appt for further refills to be processed. 180 Tablet 3 Active hydroCHLOROthia zide (HCTZ) 25 mg tabletIndicatio ns:HTN (hypertension) Take 1 Tablet (25 mg) by mouth once daily. More refills provided at completion of appointment scheduled 04/24/[address] Cruz. 90 Tablet 3 Active verapamil SR (CALAN SR) 120 mg Sustained-Relea se tabletIndicatio ns:HTN (hypertension) Take 1 Tablet (120 mg) by mouth once daily with a meal. More refills provided at completion of appointment scheduled 04/24/[address] Cruz. 90 Tablet 3 Active Active Problems Problem Noted Date Diagnosed Date Obstructive sleep apnea 08/04/2018 Schatzki's ring 08/04/2018 HTN (hypertension) 07/24/2018 mammogram, 09/2909/28/2011 Overview (11/20/2012): Mammogram, 10/30 Encounters Date Type Department Care Team Description 05/01/2025 1:00 PM CDT Ancillary Procedure [facility] & [address] [address] from Last 3 Months Family History Medical History Relation Name Comments Coronary artery disease Father Diabetes Father Cancer-pancreatic Maternal Grandmother Relation Name Status Comments Father Maternal Grandmother Social History Tobacco Use Types Packs/Day Years Used Date Smoking Tobacco: Never Smokeless Tobacco: Never Tobacco Cessation:Counseling Given: Yes Alcohol Use Standard Drinks/Week Comments Yes 0 (1 standard drink = 0.6 oz pur e alcohol) rarely- every few months. PHQ-2 Answer Date Recorded PHQ-2 TOTAL SCORE 0 06/30/2022 Social Connections Answer Date Recorded Frequency of Communication with Friends and Fami ly Not on file 12/26/2021 Financial Resource Strain Answer Date R ecorded Difficulty of Paying Living Expenses Not on file 12/26/2021 Difficulty of Paying Living Expenses Not on file 12/26/2021 Comments No Sex and Gender Information Value Date Recorded Sex Assigned at Female 12/23/2021 8:38 AM COMMUNITY RELATIONS OFFICER Legal Sex Female 5:44 AM COMMUNITY RELATIONS OFFICER Gender Identity Female 12/23/2021 8:38 AM COMMUNITY RELATIONS OFFICER Sexual Orientation Straight 12/23/2021 8: 38 AM COMMUNITY RELATIONS OFFICER Obstetrics History Last Filed Vital Signs Vital Sign Reading Time Taken Comments Blood Pressure 134/82 06/30/2022 1:47 PM CDT Pulse 79 06/30/2022 1:47 PM CDT Temperature 36.7 C (98.1 F) 08/19/2018 5:55 PM CDT Respiratory Rate 18 07/24/2018 11:38 AM CDT Oxygen Saturation 96% 06/30/2022 1:47 PM CDT Inhaled Oxygen Concentration - - Weight 117 kg (258 lb) 06/30/2022 1:47 PM CDT Height 171.5 cm (5' 7.5) 06/30/2022 1:47 PM CDT Body Mass Index 39.81 06/30/2022 1:47 PM CDT Plan of Treatment Health Maintenance Due Date Last Done Comments Tdap 1970 HIV for age 15-65 1974 Hepatitis C screening for age 18-79 1977 Tetanus booster 1979 Colonoscopy through age 75 2004 Pneumococcal series for age 50+ (1 of 1 - PCV) 2009 Zoster (shingles) series for age 50+ (1 of 2) 2009 Mammogram for age 45-75 11/14/2013 11/14/2012, 09/14 Pap test for age 21-65 12/16/2022 , 12/16/2019, 03/08/2015, Additional history exists BMI (ht and wt on same day) for age 18+ 06/30/2023 06/30/2022, 08/01/2018, 03/19/2018, Additional history exists Depression screening for age 12+ 06/30/2023 06/30/2022 DEXA/DXA scan for age 65+ 2024 COVID-19 vaccine series ( season) 2024 05/05/2022, 09/28/2021, 03/04/2021, Additional history exists Lipids for age 45-75 12/15/2024 12/15/2019 Influenza Vaccine (Season Ended) 2025 RSV vaccine for adults or (1 - 1-dose 75+ series) 2034 Hepatitis B series for 19+ Aged Out N o longer eligible based on patient's age to complete this topic Procedures Procedure Name Priority Date/Time Associated Diagnosis Comments ECHO TTE COMPLETE WO CONTRAST Routine 05/01/2025 1:38 PM CDT Cardiac 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, unspecified 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 IMAGED Routine 12/16/2019 12:00 PM COMMUNITY RELATIONS OFFICER LIPID PANEL W REFLEX MEASURED LDL Routine 12/15/2019 3:55 PM COMMUNITY RELATIONS OFFICER HTN (hypertension) SCAN-MAMMOGRAPHY REPORT 11/14/2012 12:00 AM COMMUNITY RELATIONS OFFICER from Last 3 Months or Most Recently Relevant to Health Maintenance Results * ECHO TTE COMPLETE WO CONTRAST (05/01/2025 1:38 PM CDT) AORTIC VALVE MEAN PG 10 mmHg EJECTION FRACTION 63 % LVEDD 4.4 cm EJECTION FRACTION 60 - 65% Anatomical Region Laterality Modality Ultrasound 05/01/2025 1:03 PM CDT Narrative 05/01/2025 2:18 PM CDT ECHOCARDIOGRAM DANA EMERY : 1960 64 years Study Date: 05/01/2025 1:03:32 PM Gender: F BP: 133/81 mmHg Height: 173.00 cm BSA: 2.23 m Weight: 111.00 kg Tech: BRINA Referring MD: YOLIS WASSERMAN Site: [facility] Reading Location: MOBILE OP Patient Location: Outpatient. Procedure: 2D, Color Doppler and Spectral Doppler. Indication for study: Cardiac murmur Cardiac Rhythm: Regular.Study quality: Good. Final Impressions: 1. Normal LV size, normal wall thickness, normal function with an estimated EF of 60 - 65%. 2. Right ventricular cavity size is normal, global systolic RV function is normal. 3. The inferior vena cava is dilated, respiratory size variation greater than 50%. 4. No hemodynamically significant valve disease detected. Comparison Compared to prior exam of 08/27/2017, there has been no significant change. Chamber Sizes and Function Normal left ventricular size, normal wall thickness, normal global systolic function with an estimated EF of 60 - 65%. No resting regional wall motion abnormality visualized. Left atrial size is normal. Left atrial pressure is normal. Right ventricular cavity size is normal, global systolic RV function is normal. RV wall thickness is normal. The right atrium is normal. Right atrial volume index is 17 ml/m . The pulmonary artery is of normal size and origin. The sinus of Valsalva is normal sized. The ascending aorta is normal sized. Valves, RV Pressures and Diastolic Function The aortic valve is normal in structure and trileaflet, no stenosis and trivial regurgitation. The mitral valve is normal in structure, trace mitral regurgitation. Normal diastolic function. The tricuspid valve is normal in structure, trace tricuspid regurgitation. The pulmonic valve is normal. Trace pulmonary regurgitation. Masses, Effusion, Shunts There is no pericardial effusion. The inferior vena cava is dilated, respiratory size variation greater than 50%. No left to right shunting was detected by limited color flow Doppler interrogation of the interatrial septum. MEASUREMENTS AND CALCULATIONS 2-D Measurements and LV Function: LVID (d) 4.4 cm LV FS% (2D) 34 % LVID (s) 2.9 cm LVOT diameter 2.2 cm IVS (d) 0.8 cm HR 74 bpm LVPW (d) 0.9 cm LA Vol index 30 ml/m2 Ao Sinus 3.3 cm RA Vol index 17 ml/m2 Ao Sinus ULN 3.8 cm * RV Basal Diam 3.8 cm Asc Ao 3.1 cm Asc Ao ULN 3.9 cm * * Input BSA outside of range, reported values correspond to BSA = 1.9 Diastology: Mitral Tissue Doppler Pulmonary veins E Peak 0.8 m/s e', Septum 0.07 m/s Pulm s 87.3 cm/s A Peak 0.9 m/s e', Lateral 0.08 m/s Pulm d 69.5 cm/s E/A 0.9 E/e' Average 11.24 Pulm s/d ratio 1.26 DT 220 msec Aortic Valve: Vmax 2.0 m/s OSCAR (V) 2.62 cm VTI 0.42 m OSCAR (I) 2.67 cm LVOT V max 1.4 m/s Max PG 16 mmHg LVOT VTI 0.30 m Mean PG 10 mmHg SV 113 ml Dim Index 0.70 SV index 51 ml/m CO 8.4 l/min CI 3.8 l/min/m Mitral Valve: MVA 3.5 cm MV P 1/2 64 msec MV Mean G 2 mmHg MV VTI 0.28 m Tricuspid Valve and estimated PA pressures: TAPSE 2.6 cm Pulmonic Valve: PV Vmax 1.4 m/s . This study was interpreted by an [facility] accredited facility. CC: [facility] ([facility]) [facility]. Final Procedure Note Doyle Kemp MD - 05/01/2025 ECHOCARDIOGRAM DANA EMERY : 1960 64 years Study Date: 05/01/2025 1:03:32 PM Gender: F BP: 133/81 mmHg Height: 173.00 cm BSA: 2.23 m Weight: 111.00 kg Tech: BRINA Referring MD: YOLIS WASSERMAN Site: [facility] Reading Location: MOBILE OP Patient Location: Outpatient. Procedure: 2D, Color Doppler and Spectral Doppler. Indication for study: Cardiac murmur Cardiac Rhythm: Regular.Study quality: Good. Final Impressions: 1. Normal LV size, normal wall thickness, normal function with anestimated EF of 60 - 65%. 2. Right ventricular cavity size is normal, global systolic RV functionis normal. 3. The inferior vena cava is dilated, respiratory size variation greaterthan 50%. 4. No hemodynamically significant valve disease detected. Comparison Compared to prior exam of 08/27/2017, there has been no significantchange. Chamber Sizes and Function Normal left ventricular size, normal wall thickness, normal globalsystolic function with an estimated EF of 60 - 65%. No resting regionalwall motion abnormality visualized. Left atrial size is normal. Leftatrial pressure is normal. Right ventricular cavity size is normal, globalsystolic RV function is normal. RV wall thickness is normal. The rightatrium is normal. Right atrial volume index is 17 ml/m . The pulmonaryartery is of normal size and origin. The sinus of Valsalva is normalsized. The ascending aorta is normal sized. Valves, RV Pressures and Diastolic Function The aortic valve is normal in structure and trileaflet, no stenosis andtrivial regurgitation. The mitral valve is normal in structure, tracemitral regurgitation. Normal diastolic function. The tricuspid valve isnormal in structure, trace tricuspid regurgitation. The pulmonic valve isnormal. Trace pulmonary regurgitation. Masses, Effusion, Shunts There is no pericardial effusion. The inferior vena cava is dilated,respiratory size variation greater than 50%. No left to right shunting wasdetected by limited color flow Doppler interrogation of the interatrialseptum. MEASUREMENTS AND CALCULATIONS 2-D Measurements and LV Function: LVID (d) 4.4 cm LV FS% (2D) 34% LVID (s) 2.9 cm LVOT diameter2.2 cm IVS (d) 0.8 cm HR 74bpm LVPW (d) 0.9 cm LA Vol index 30ml/m2 Ao Sinus 3.3 cm RA Vol index 17ml/m2 Ao Sinus ULN 3.8 cm * RV Basal Diam3.8 cm Asc Ao 3.1 cm Asc Ao ULN 3.9 cm * * Input BSA outside of range, reported values correspond to BSA = 1.9 Diastology: Mitral Tissue Doppler Pulmonary veins E Peak 0.8 m/s e', Septum 0.07 m/s Pulm s 87.3 cm/s A Peak 0.9 m/s e', Lateral 0.08 m/s Pulm d 69.5 cm/s E/A 0.9 E/e' Average 11.24 Pulm s/d ratio 1.26 DT 220 msec Aortic Valve: Vmax 2.0 m/s OSCAR (V) 2.62 cm VTI 0.42 m OSCAR (I) 2.67 cm LVOT V max 1.4 m/s Max PG 16 mmHg LVOT VTI 0.30 m Mean PG 10 mmHg SV 113 ml Dim Index 0.70 SV index 51 ml/m CO 8.4 l/min CI 3.8 l/min/m Mitral Valve: MVA 3.5 cm MV P 1/2 64 msec MV Mean G 2 mmHg MV VTI 0.28 m Tricuspid Valve and estimated PA pressures: TAPSE 2.6 cm Pulmonic Valve: PV Vmax 1.4 m/s . This study was interpreted by an [facility] accredited facility. CC: [facility] ([facility]) [facility]. 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 IMAGED (12/16/2019 12:00 PM COMMUNITY RELATIONS OFFICER) Case Report Gynecologic Cytology Report Case: [id number] Authorizing Provider: Laura Vasquez PA-C Collected: 12/16/2019 1200 Ordering Location: [facility] Received: 12/17/2019 1347 First Screen: Leny Link Rescreen: Kt Robert Specimen: FUEL TRUCK DRIVER ThinPrep Vial Screening, Cervical/Vaginal 12/25/2019 6:22 PM COMMUNITY RELATIONS OFFICER [facility] INTERPRETATION/ RESULT NEGATIVE FOR INTRAEPITHELIAL LESION OR MALIGNANCY (NIL) (none) 12/25/2019 6:22 PM COMMUNITY RELATIONS OFFICER [facility] at 1822 COMMUNITY RELATIONS OFFICER SPECIMEN ADEQUACY Satisfactory for evaluation Endocervical component present 12/25/2019 6:22 PM [facility] HPV REQUEST HPV and PAP 12/25/2019 6:22 PM [facility] Last Pap Date 03/08/2015 12/25/2019 6:22 PM [facility] Last Pap Result NIL 0 6:22 PM [facility] Additional Information 12/25/2019 6:22 PM [facility] Comment: Interpreted at [facility] - [address], [place] [address] Automated Review Successful 12/25/2019 6:22 PM [facility] Comment:Specimen processed s uccessfully by automated recycling center operator device, [employer], [employer] 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 It is used primarily to screen for squamous cancers and precursor lesions. Published studies have shown that it is subject to both false negative and false positive results. The pap test should not be used as the sole means to diagnose or exclude pre-malignant and malignant lesions. 12/25/2019 6:22 PM [facility] Other (Cervical/Vagina l) 12/16/2019 12:00 PM COMMUNITY RELATIONS OFFICER 12/17/2019 1:47 PM COMMUNITY RELATIONS OFFICER us February L Christina [facility]/CYTOLOGY Final R esult [facility] [address] [place] [address], [place] * (ABNORMAL) LIPID PANEL W REFLEX MEASURED LDL (12/15/2019 3:55 PM COMMUNITY RELATIONS OFFICER) CHOLESTEROL,TOTAL 162 100 - 199 mg/dL 12/16/2019 5:00 PM [facility] TRAL LABORAT[facility] TRIGLYCERIDES 193(H) <150 mg/dL 12/16/2019 5:00 PM COMMUNITY RELATIONS OFFICER [facility] HDL CHOLESTEROL 39(L) >40 mg/dL 0 5:00 PM COMMUNITY RELATIONS OFFICER [facility] NON-HDL CHOLESTEROL 123 <145 mg/dl 12/16/2019 5:00 PM COMMUNITY RELATIONS OFFICER [facility] CHOL/HDL RATIO 4.15 <4.50 12/16/2019 5:00 PM COMMUNITY RELATIONS OFFICER [facility] TR[facility] LDL CHOLESTEROL 84 <=130 mg/dL 12/16/2019 5:00 PM COMMUNITY RELATIONS OFFICER [facility] TR[facility] PROVIDER ORDERED STATUS RANDOM 12/16/2019 5:00 PM COMMUNITY RELATIONS OFFICER [facility] Blood BLOOD SPECIMEN / Unknown Venipuncture / Unknown 12/15/2019 3:55 PM COMMUNITY RELATIONS OFFICER 12/15/2019 3:55 PM COMMUNITY RELATIONS OFFICER us Giacomo Frank MD CHEMISTRY Final [facility]u [facility] [address] [place] [address], [place] * SCAN-MAMMOGRAPHY REPORT (11/14/2012 12:00 AM COMMUNITY RELATIONS OFFICER) Anatomical Region Laterality Modality Other Narrative 11/19/2012 12:41 PM COMMUNITY RELATIONS OFFICER Procedure Note Scanner - 11/14/2012 12:00 AM CST us Scanner OTHER Final Result from Last 3 Months or Most Recently Relevant to Health Maintenance Insurance [facility] MEDICARE ADVANTAGE MR Care Teams Fish Hatchery Supervisor Relationship Specialty Start Date End Date Eliezer Jara MD [address] [place] [address] PCP - General Internal Medicine 02/05/18
== END 2025-05-07 15:22 | disposition home or self-care (01) ==
LOC: RAD 15:21
PROVIDERS: PCP Nurse Practitioner Family; Visit Provider Nurse Practitioner Family
DX: Z13.820 Encounter for screening for osteoporosis (principal)
CPT/HCPCS: 77080

== ENCOUNTER 2025-07-15 14:38 | Outpatient (CLI) | payer MEDICARE, SELFPAY ==
--- NOTE | 2025-07-15 14:40 | CRLHL7_ITS ---
For Patients: As a result of the Century Cures Act, medical imaging exams and procedure reports are released immediately into your electronic medical record. You may view this report before your referring provider. If you have questions, please contact your health care provider. INDICATION: BILATERAL SCREENING MAMMOGRAM, ASYMPTOMATIC 65 Y/O FEMALE COMPARISON: 07/14/2024, 04/09/2023, 01/24/2022 TECHNIQUE: Digital mammogram in CC and MLO projections including computer-aided detection (CAD) and tomosynthesis. BREAST COMPOSITION: There are scattered areas of fibroglandular density. FINDINGS: No suspicious findings. ASSESSMENT: BI-RADS 1 Negative RECOMMENDATION: Annual screening mammogram. A lay language report of this examination will be provided to the patient. Dictated by: Sae Ruff MD @ 07/16/2025 10:18:21 (Electronically Signed)
== END 2025-07-15 14:39 | disposition home or self-care (01) ==
PROVIDERS: PCP Nurse Practitioner Family; Visit Provider Nurse Practitioner Family
DX: Z12.31 Encounter for screening mammogram for malignant neoplasm of breast (principal)
CPT/HCPCS: 77063; 77067

== ENCOUNTER 2025-10-27 09:31 | Outpatient (CLI) | payer MEDICARE, SELFPAY | END 2025-10-27 09:32 | disposition home or self-care (01) | LOC: NFLDREF 11-02 18:10 | PROVIDERS: PCP Nurse Practitioner Family; Referring Provider Nurse Practitioner Family; Visit Provider Nurse Practitioner Family | DX: D64.9 Anemia, unspecified (principal) | CPT/HCPCS: 82728; 83540; 83550 ==